=== PATIENT | male | born 1965 | race Caucasian/White ===

== ENCOUNTER 2016-12-27 11:24 | Emergency (ER) | payer MEDICARE ==
[2016-12-27] MEDS ORDERED: NS 0.9% 1000 ML* 2,000 ML IV ONE (14:42)
[2016-12-27] MEDS ORDERED: Ondansetron INJ* 2 MG/ML VIAL IV ONE (14:42)
[2016-12-27] MEDS ORDERED: Ketorolac INJ* 30 MG/ML 1 ML VIAL IV PUSH ONE (14:51)
[2016-12-27 15:16] LABS: Hematocrit 53 % (42-52); Hemoglobin 17.8 g/dl (14.0-18.0); Mean Corpuscular HGB Conc 34 g/dl (31-36); Mean Corpuscular Hemoglobin 30 pg (27-31); Mean Corpuscular Volume 88 fL (80-94); Mean Platelet Volume 8 um3 (7.4-10.4); Red Blood Count 5.99 10^6/ul (4.0-5.4); Red Cell Distribution Width 14 % (10.5-15); White Blood Count 7.5 10^3/ul (3.5-10.8)
[2016-12-27 15:18] LABS: Urine Bilirubin Negative (Negative); Urine Glucose Negative (Negative); Urine Nitrite Negative (Negative)
[2016-12-27 15:32] LABS: Albumin 4.5 g/dL (3.2-5.2); BUN/Creatinine Ratio 22.8 (8-20); Calcium 9.6 mg/dL (8.6-10.3); EGFR African American 110.7 (>60); EGFR Non-African American 86.1 (>60); Globulin 3.3 g/dL (2-4); Potassium 3.6 mmol/L (3.5-5.0); Total Bilirubin 0.6 mg/dL (0.2-1.0); Total Protein 7.8 g/dL (6.4-8.9)
[2016-12-27] MEDS ORDERED: Morphine INJ* 4 MG/ML 1 ML CARPUJECT IV ONE (15:53)
--- NOTE | 2016-12-27 15:55 | RAD ---
INDICATION: Right flank abdominal pain and history of kidney stones. COMPARISON: There are no prior studies available for comparison. TECHNIQUE: A CT scan of the abdomen and pelvis was performed without intravenous or oral contrast. Contiguous axial sections were obtained from the lung bases through the symphysis pubis. Images were reconstructed in the coronal and sagittal planes. FINDINGS: There is mild dependent bilateral lower lobe subsegmental atelectasis. No pleural effusion is present. The liver and spleen are normal in size. There are several small hypodense hepatic lesions. The largest measures 2 cm in size. These are nonspecific finding although likely represent cysts. The patient is status post cholecystectomy. The pancreas appears to be within normal limits. The kidneys and adrenal glands are normal in size. There are several calcifications within the left kidney measuring up to 0.6 cm in size consistent with renal calculi. No hydronephrosis is seen. No ureteral or bladder calculi are seen. The aorta is normal in caliber with mild calcific plaque present. No significant enlarged retroperitoneal lymph nodes are seen. The stomach, small and large bowel appear nondistended. The appendix is not well visualized. There is mild descending and sigmoid diverticulosis without evidence for diverticulitis. There is a small periumbilical hernia containing fat. No free intraperitoneal air or fluid is seen. No significant focal osseous abnormality is seen. IMPRESSION: 1. MULTIPLE NONOBSTRUCTING LEFT RENAL CALCULI, NO EVIDENCE FOR HYDRONEPHROSIS. 2. THERE ARE SEVERAL HYPODENSE HEPATIC LESIONS NONSPECIFIC ON THIS NONCONTRAST STUDY ALTHOUGH LIKELY REPRESENTING CYSTS. THESE CAN BE FURTHER EVALUATED WITH A RIGHT UPPER QUADRANT ULTRASOUND IF CLINICALLY NEEDED. 3. STATUS POST CHOLECYSTECTOMY.
--- NOTE | 2016-12-27 16:17 | ED ---
Abdominal Pain/Male - HPI Summary HPI Summary: 51M present with right sided abdominal pain and nausea since yesterday. He also admits to vomiting and diarrhea. He says that it feels like his kidney stones he has had in the past. He admits to frequency but denies any dysuria or hematuria. He has take tynelol for the pain. He says though he does not get diarrhea with his kidney stones. He denies any one else being sick. He has had his appendix and gallbladder removed. - History of Current Complaint Chief Complaint: EDAbdPain Stated Complaint: RIGHT SIDE FLANK PAIN Time Seen by Provider: 12/27/16 14:40 Pain Intensity: 8 - Allergies/Home Medications Allergies/Adverse Reactions: Allergies Allergy/AdvReac Type Severity Reaction Status Date / Time Bee Venom Allergy Intermediate Hives Verified 05/16/14 21:22 Warfarin Allergy Intermediate Itching Verified 05/16/14 21:22 PMH/Surg Hx/FS Hx/Imm Hx Cardiovascular History: Reports: Hx Angina, Hx Hypercholesterolemia, Hx Hypertension Denies: Hx Myocardial Infarction, Hx Valvular Heart Disease Respiratory History: Reports: Hx Sleep Apnea GI History: Reports: Hx Gastroesophageal Reflux Disease Musculoskeletal History: Reports: Hx Arthritis Sensory History: Reports: Hx Contacts or Glasses Opthamlomology History: Reports: Hx Contacts or Glasses Psychiatric History: Reports: Hx Depression - Surgical History Surgery Procedure, Year, and Place: Bilateral knee replacement Infectious Disease History: Yes Infectious Disease History: Denies: Traveled Outside the [place] in Last 30 Days - Family History Known Family History: Negative: Cardiac Disease - Social History Alcohol Use: None Substance Use Type: Reports: None Smoking Status (MU): Light Every Day Tobacco Smoker Type: Cigarettes Amount Used/How Often: 1 pack/day Have You Smoked in the Last Year: Yes Review of Systems Negative: Fever Negative: Chest Pain Negative: Shortness Of Breath Positive: Abdominal Pain - right side abdominal pain, Vomiting, Diarrhea, Nausea All Other Systems Reviewed And Are Negative: Yes Physical Exam Triage Information Reviewed: Yes Vital Signs On Initial Exam: Initial Vitals Temp Pulse Resp BP Pulse Ox 98.4 F 77 18 122/83 97 12/27/16 11:41 12/27/16 11:41 12/27/16 11:41 12/27/16 11:41 12/27/16 11:41 Vital Signs Reviewed: Yes Appearance: Positive: Well-Appearing Skin: Positive: Warm, Dry Head/Face: Positive: Normal Head/Face Inspection Eyes: Positive: Normal, Conjunctiva Clear ENT: Positive: Normal ENT inspection, Pharynx normal, TMs normal Respiratory/Lung Sounds: Positive: Clear to Auscultation, Breath Sounds Present Cardiovascular: Positive: Normal, RRR Abdomen Description: Positive: Soft, Other: - no rebound tenderness, tenderness to right side of abdomen. Negative: CVA Tenderness (R), CVA Tenderness (L) Bowel Sounds: Positive: Present Diagnostics - Vital Signs Vital Signs Temp Pulse Resp BP Pulse Ox 12/27/16 15:58 20 12/27/16 15:18 75 16 117/63 98 12/27/16 13:13 97.8 F 74 18 119/73 97 12/27/16 11:41 98.4 F 77 18 122/83 97 - Laboratory Lab Results: Lab Results 12/27/16 12/27/16 12/27/16 Range/Units 15:07 15:07 15:07 WBC 7.5 (3.5-10.8) 10^3/ul RBC 5.99 H (4.0-5.4) 10^6/ul Hgb 17.8 (14.0-18.0) g/dl Hct 53 H (42-52) % MCV 88 (80-94) fL MCH 30 (27-31) pg MCHC 34 (31-36) g/dl RDW 14 (10.5-15) % Plt Count 238 (150-450) 10^3/ul MPV 8 (7.4-10.4) um3 Neut % (Auto) 53.9 (38-83) % Lymph % (Auto) 31.6 (25-47) % [place] % (Auto) 8.8 (1-9) % Eos % (Auto) 4.8 (0-6) % Baso % (Auto) 0.9 (0-2) % Absolute Neuts (auto) 4.0 (1.5-7.7) 10^3/ul Absolute Lymphs (auto) 2.4 (1.0-4.8) 10^3/ul Absolute Monos (auto) 0.7 (0-0.8) 10^3/ul Absolute Eos (auto) 0.4 (0-0.6) 10^3/ul Absolute Basos (auto) 0.1 (0-0.2) 10^3/ul Absolute Nucleated RBC 0.01 10^3/ul Nucleated RBC % 0.1 Sodium 134 (133-145) mmol/L Potassium 3.6 (3.5-5.0) mmol/L Chloride 106 (101-111) mmol/L Carbon Dioxide 24 (22-32) mmol/L Anion Gap 4 (2-11) mmol/L BUN 21 (6-24) mg/dL Creatinine 0.92 (0.67-1.17) mg/dL Est GFR ( Amer) 110.7 (>60) Est GFR (Non-Af Amer) 86.1 (>60) BUN/Creatinine Ratio 22.8 H (8-20) Glucose 88 (70-100) mg/dL Lactic Acid (0.5-2.0) mmol/L Calcium 9.6 (8.6-10.3) mg/dL Total Bilirubin 0.60 (0.2-1.0) mg/dL AST 20 (13-39) U/L ALT 22 (7-52) U/L Alkaline Phosphatase 80 (34-104) U/L C-React Prot High Sens 16.57 mg/L Total Protein 7.8 (6.4-8.9) g/dL Albumin 4.5 (3.2-5.2) g/dL Globulin 3.3 (2-4) g/dL Albumin/Globulin Ratio 1.4 (1-3) Lipase 17 (11.0-82.0) U/L Urine Color Yellow Urine Appearance Clear Urine pH 5.0 (5-9) Ur Specific [place] 1.021 (1.010-1.030) Urine Protein Negative (Negative) Urine Ketones 1+ H (Negative) Urine Blood Negative (Negative) Urine Nitrate Negative (Negative) Urine Bilirubin Negative (Negative) Urine Urobilinogen Negative (Negative) Ur Leukocyte Esterase Negative (Negative) Urine Glucose Negative (Negative) 12/27/16 Range/Units 15:07 WBC (3.5-10.8) 10^3/ul RBC (4.0-5.4) 10^6/ul Hgb (14.0-18.0) g/dl Hct (42-52) % MCV (80-94) fL MCH (27-31) pg MCHC (31-36) g/dl RDW (10.5-15) % Plt Count (150-450) 10^3/ul MPV (7.4-10.4) um3 Neut % (Auto) (38-83) % Lymph % (Auto) (25-47) % [place] % (Auto) (1-9) % Eos % (Auto) (0-6) % Baso % (Auto) (0-2) % Absolute Neuts (auto) (1.5-7.7) 10^3/ul Absolute Lymphs (auto) (1.0-4.8) 10^3/ul Absolute Monos (auto) (0-0.8) 10^3/ul Absolute Eos (auto) (0-0.6) 10^3/ul Absolute Basos (auto) (0-0.2) 10^3/ul Absolute Nucleated RBC 10^3/ul Nucleated RBC % Sodium (133-145) mmol/L Potassium (3.5-5.0) mmol/L Chloride (101-111) mmol/L Carbon Dioxide (22-32) mmol/L Anion Gap (2-11) mmol/L BUN (6-24) mg/dL Creatinine (0.67-1.17) mg/dL Est GFR ( Amer) (>60) Est GFR (Non-Af Amer) (>60) BUN/Creatinine Ratio (8-20) Glucose (70-100) mg/dL Lactic Acid 0.6 (0.5-2.0) mmol/L Calcium (8.6-10.3) mg/dL Total Bilirubin (0.2-1.0) mg/dL AST (13-39) U/L ALT (7-52) U/L Alkaline Phosphatase (34-104) U/L C-React Prot High Sens mg/L Total Protein (6.4-8.9) g/dL Albumin (3.2-5.2) g/dL Globulin (2-4) g/dL Albumin/Globulin Ratio (1-3) Lipase (11.0-82.0) U/L Urine Color Urine Appearance Urine pH (5-9) Ur Specific [place] (1.010-1.030) Urine Protein (Negative) Urine Ketones (Negative) Urine Blood (Negative) Urine Nitrate (Negative) Urine Bilirubin (Negative) Urine Urobilinogen (Negative) Ur Leukocyte Esterase (Negative) Urine Glucose (Negative) Result Diagrams: 12/27/16 15:07 12/27/16 15:07 Lab Statement: Any lab studies that have been ordered have been reviewed, and results considered in the medical decision making process. - CT ab CT Interpretation: Positive (See Comments) - IMPRESSION: 1. MULTIPLE NONOBSTRUCTING LEFT RENAL CALCULI, NO EVIDENCE FOR HYDRONEPHROSIS. 2. THERE ARE SEVERAL HYPODENSE HEPATIC LESIONS NONSPECIFIC ON THIS NONCONTRAST STUDY ALTHOUGH LIKELY REPRESENTING CYSTS. THESE CAN BE FURTHER EVALUATED WITH A RIGHT UPPER QUADRANT ULTRASOUND IF CLINICALLY NEEDED. 3. STATUS POST CHOLECYSTECTOMY. CT Interpretation Completed By: Radiologist Abdominal Pain Fem Course/Dx - Course Course Of Treatment: 51 M presents with n/v/d and abdominal pain since yesterday. says similiar to kidney stones in past. CT does not show kidney stone , labs normal, explained likely viral will give zofran, patient understands and agrees with plan - Diagnoses Differential Diagnosis/HQI/PQRI: Diverticulitis, Renal Colic, Urinary Tract Infection Provider Diagnoses: Abdominal pain, Nausea and vomiting Discharge - Discharge Plan Condition: Good Disposition: HOME Prescriptions: Ondansetron ODT TAB* [Zofran Odt TAB*] 4 mg PO Q6H PRN #15 tab.odt PRN Reason: Nausea Patient Education Materials: Acute Nausea and Vomiting (ED) Referrals: Alise Marroquin MD [Primary Care Provider] - Additional Instructions: Can take Zofran every 6 hours as needed for nausea Drink small amounts of fluid as tolerated When able to eat follow BRAT diet: Bananas, rice, applesauce, toast Symptoms likely due to viral gastroenteritis Take ibuprofen or Tylenol for pain as needed every 6 hours Follow up with primary within 5 days Return to ED if develop fever that does not respond to Tylenol or ibuprofen, severe abdominal pain, or any new or worsening symptoms
[2016-12-27 16:41] VITALS: BP 114/73
== END 2016-12-27 16:42 | disposition home or self-care (01) ==
LOC: ED 11:24
DX: R10.9 Unspecified abdominal pain (principal); R11.2 Nausea with vomiting, unspecified; F17.210 Nicotine dependence, cigarettes, uncomplicated; Z87.442 Personal history of urinary calculi; Z90.49 Acquired absence of other specified parts of digestive tract
CPT/HCPCS: 36415; 74176; 80053; 81003; 83605; 83690; 85025; 86141; 96360; 96374; 96375; 99283; J1885; J2270; J2405

== ENCOUNTER 2017-05-17 08:15 | Emergency (ER) | payer MEDICARE ==
[2017-05-17] MEDS ORDERED: NS 0.9% 1000 ML* 1,000 ML IV ONE (08:56)
[2017-05-17] MEDS ORDERED: Ondansetron INJ* 2 MG/ML VIAL IV ONE (08:56)
[2017-05-17] MEDS ORDERED: Ketorolac INJ* 30 MG/ML 1 ML VIAL IV ONE (08:56)
[2017-05-17] MEDS ORDERED: HYDROmorphone* 1 MG/ML 1 ML SYR IV ONE (08:56)
--- NOTE | 2017-05-17 09:32 | RAD ---
CLINICAL HISTORY: Left flank pain COMPARISON: December 27, 2016 TECHNIQUE: Multiple contiguous axial CT scans were obtained of the abdomen and pelvis, without intravenous contrast enhancement. Coronal and sagittal multiplanar reformations are submitted for review. Oral contrast was not administered. FINDINGS: The study is limited by the lack of intravenous contrast. This limits evaluation of the solid organs and vasculature. LUNG BASES: The lung bases are clear. LIVER: There are stable low-attenuation hepatic parenchymal lesions. BILE DUCTS: There is no intrahepatic or extrahepatic biliary dilatation. GALLBLADDER: The gallbladder is not visualized. Surgical clips are noted in the gallbladder fossa. PANCREAS: The pancreas is normal, without mass or ductal dilatation. SPLEEN: Normal in size and appearance. UPPER GI TRACT: Evaluation of the gastrointestinal tract is limited by incomplete gastric distention. The upper GI tract is unremarkable. SMALL BOWEL AND MESENTERY: The small bowel is normal in contour, course, and caliber. There is no obstruction or dilatation. COLON: The colon is normal in contour, course, caliber. There is no pericolonic inflammatory change. ADRENALS: Normal bilaterally. KIDNEYS: The left kidney is edematous. There are multiple renal calculi on the left. This includes several calculi of the proximal left ureter measuring up to 0.9 cm in size. There is moderate left pelvocaliectasis. There is a punctate calculus of the lower pole of the right kidney measuring up to 0.2 cm.. BLADDER: The bladder is smooth in contour. PELVIC ORGANS: The prostate gland is normal. The seminal vesicles are symmetric. AORTA: The aorta is normal. IVC: Unremarkable LYMPH NODES: There is no lymphadenopathy by size criteria. ABDOMINAL WALL: There is no evidence for abdominal wall hernia. BONES AND SOFT TISSUES: Degenerative changes are noted OTHER: None IMPRESSION: 1. BILATERAL NEPHROLITHIASIS, INCLUDING SEVERAL CALCULI OF THE PROXIMAL LEFT URETER MEASURING UP TO 0.9 CM IN SIZE WITH ASSOCIATED LEFT SIDED HYDRONEPHROSIS AND RENAL EDEMA. 2. STABLE LOW-ATTENUATION HEPATIC PARENCHYMAL LESIONS.
[2017-05-17 10:05] LABS: Hematocrit 45 % (42-52); Hemoglobin 15.1 g/dl (14.0-18.0); Mean Corpuscular HGB Conc 34 g/dl (31-36); Mean Corpuscular Hemoglobin 30 pg (27-31); Mean Corpuscular Volume 89 fL (80-94); Mean Platelet Volume 8 um3 (7.4-10.4); Red Blood Count 5.03 10^6/ul (4.0-5.4); Red Cell Distribution Width 14 % (10.5-15); White Blood Count 10.8 10^3/ul (3.5-10.8)
[2017-05-17 10:20] LABS: Albumin 4.1 g/dL (3.2-5.2); BUN/Creatinine Ratio 12.7 (8-20); C Reactive Protein 115.34 mg/L (< 5.00); Calcium 9.3 mg/dL (8.6-10.3); EGFR African American 67.1 (>60); EGFR Non-African American 52.2 (>60); Globulin 3.2 g/dL (2-4); Potassium 3.7 mmol/L (3.5-5.0); Total Bilirubin 0.8 mg/dL (0.2-1.0); Total Protein 7.3 g/dL (6.4-8.9)
[2017-05-17 10:33] LABS: Urine Bacteria Absent (Absent); Urine Bilirubin Negative (Negative); Urine Glucose Negative (Negative); Urine Nitrite Negative (Negative)
--- NOTE | 2017-05-17 11:08 | ED ---
Cory Flowers Thomas, scribed for Eze Ngo MD on 05/17/17 at 0844 . Abdominal Pain/Male - HPI Summary HPI Summary: Pt is a 51 y/o M presenting to the ED c/o L-sided abd pain that began yesterday. Pain is "throbbing, steady and jagged" and has worsened throughout the night. Pain is aggravated when laying on side and when going over speed bumps. He has taken tylenol for the pain. Additionally c/o chills and dry heaving (yesterday). Denies hematuria, constipation, dysuria, fever. He has a Hx of kideny stone. He has a surgery schedule in two days on his knee. - History of Current Complaint Chief Complaint: EDAbdPain Stated Complaint: LT FLANK PAIN Time Seen by Provider: 05/17/17 08:31 Hx Obtained From: Patient Onset/Duration: Lasting Hours - onset yesterday, Still Present, Worse Since - this AM Timing: Constant Severity Currently: Severe Pain Intensity: 10 Pain Scale Used: 0-10 Numeric Location: Other - L side Character: Other: - "throbbing, steady, jagged" Associated Signs And Symptoms: Positive: Nausea - dry heaves, Other - POS: chills. NEG: hematuria, constipation, dysuria. Negative: Fever - Allergies/Home Medications Allergies/Adverse Reactions: Allergies Allergy/AdvReac Type Severity Reaction Status Date / Time Bee Venom Allergy Intermediate Hives Verified 05/13/17 12:33 Warfarin Allergy Intermediate Itching Verified 05/13/17 12:33 PMH/Surg Hx/FS Hx/Imm Hx Previously Healthy: No Cardiovascular History: Reports: Hx Angina, Hx Hypercholesterolemia, Hx Hypertension Denies: Hx Myocardial Infarction, Hx Valvular Heart Disease Respiratory History: Reports: Hx Sleep Apnea GI History: Reports: Hx Gastroesophageal Reflux Disease Musculoskeletal History: Reports: Hx Arthritis Sensory History: Reports: Hx Contacts or Glasses Opthamlomology History: Reports: Hx Contacts or Glasses Psychiatric History: Reports: Hx Depression - Surgical History Surgery Procedure, Year, and Place: Bilateral knee replacement Infectious Disease History: No Infectious Disease History: Denies: Traveled Outside the [place] in Last 30 Days - Family History Known Family History: Negative: Cardiac Disease - Social History Alcohol Use: None Substance Use Type: Reports: None Smoking Status (MU): Light Every Day Tobacco Smoker Type: Cigarettes Amount Used/How Often: 1 pack/day Have You Smoked in the Last Year: Yes Review of Systems Positive: Chills. Negative: Fever Eyes: Negative ENT: Negative Cardiovascular: Negative Respiratory: Negative Positive: Abdominal Pain - L side, Nausea - dry heaves, Other - NEG: constipation Genitourinary: Negative Negative: dysuria, hematuria Musculoskeletal: Negative Skin: Negative Neurological: Negative Psychological: Normal All Other Systems Reviewed And Are Negative: Yes Physical Exam Triage Information Reviewed: Yes Vital Signs On Initial Exam: Initial Vitals Temp Pulse Resp BP Pulse Ox 98.1 F 90 20 139/87 95 05/17/17 08:21 05/17/17 08:21 05/17/17 08:21 05/17/17 08:21 05/17/17 08:21 Vital Signs Reviewed: Yes Appearance: Positive: Well-Appearing, No Pain Distress, Obese - morbidly Skin: Positive: Warm, Skin Color Reflects Adequate Perfusion, Dry Head/Face: Positive: Normal Head/Face Inspection Eyes: Positive: Normal ENT: Positive: Normal ENT inspection Neck: Positive: Supple, Nontender Respiratory/Lung Sounds: Positive: Clear to Auscultation, Breath Sounds Present Cardiovascular: Positive: RRR Abdomen Description: Positive: Soft, Other: - TTP at the LUQ Bowel Sounds: Positive: Present Musculoskeletal: Positive: Normal Neurological: Positive: Normal, Sensory/Motor Intact, Alert, Oriented to Person Place, Time, CN Intact II-III Psychiatric: Positive: Normal, Affect/Mood Appropriate Diagnostics - Vital Signs Vital Signs Temp Pulse Resp BP Pulse Ox 05/17/17 08:24 97.3 F 85 20 139/87 95 05/17/17 08:21 98.1 F 90 20 139/87 95 - Laboratory Lab Results: Lab Results 05/17/17 05/17/17 05/17/17 Range/Units 09:35 09:40 09:40 WBC 10.8 (3.5-10.8) 10^3/ul RBC 5.03 (4.0-5.4) 10^6/ul Hgb 15.1 (14.0-18.0) g/dl Hct 45 (42-52) % MCV 89 (80-94) fL MCH 30 (27-31) pg MCHC 34 (31-36) g/dl RDW 14 (10.5-15) % Plt Count 214 (150-450) 10^3/ul MPV 8 (7.4-10.4) um3 Neut % (Auto) 69.8 (38-83) % Lymph % (Auto) 17.9 L (25-47) % Price % (Auto) 10.4 H (1-9) % Eos % (Auto) 1.4 (0-6) % Baso % (Auto) 0.5 (0-2) % Absolute Neuts (auto) 7.6 (1.5-7.7) 10^3/ul Absolute Lymphs (auto) 1.9 (1.0-4.8) 10^3/ul Absolute Monos (auto) 1.1 H (0-0.8) 10^3/ul Absolute Eos (auto) 0.1 (0-0.6) 10^3/ul Absolute Basos (auto) 0.1 (0-0.2) 10^3/ul Absolute Nucleated RBC 0 10^3/ul Nucleated RBC % 0 Sodium 133 (133-145) mmol/L Potassium 3.7 (3.5-5.0) mmol/L Chloride 108 (101-111) mmol/L Carbon Dioxide 20 L (22-32) mmol/L Anion Gap 5 (2-11) mmol/L BUN 18 (6-24) mg/dL Creatinine 1.42 H (0.67-1.17) mg/dL Est GFR ( Amer) 67.1 (>60) Est GFR (Non-Af Amer) 52.2 (>60) BUN/Creatinine Ratio 12.7 (8-20) Glucose 107 H (70-100) mg/dL Lactic Acid (0.5-2.0) mmol/L Calcium 9.3 (8.6-10.3) mg/dL Total Bilirubin 0.80 (0.2-1.0) mg/dL AST 14 (13-39) U/L ALT 22 (7-52) U/L Alkaline Phosphatase 71 (34-104) U/L C-Reactive Protein 115.34 H (< 5.00) mg/L Total Protein 7.3 (6.4-8.9) g/dL Albumin 4.1 (3.2-5.2) g/dL Globulin 3.2 (2-4) g/dL Albumin/Globulin Ratio 1.3 (1-3) Lipase 15 (11.0-82.0) U/L Urine Color Yellow Urine Appearance Clear Urine pH 6.0 (5-9) Ur Specific [place] 1.012 (1.010-1.030) Urine Protein Negative (Negative) Urine Ketones Negative (Negative) Urine Blood 1+ H (Negative) Urine Nitrate Negative (Negative) Urine Bilirubin Negative (Negative) Urine Urobilinogen Positive H (Negative) Ur Leukocyte Esterase Trace H (Negative) Urine WBC (Auto) Trace(0-5/hpf) (Absent) Urine RBC (Auto) 1+(3-5/hpf) H (Absent) Ur Squamous Epith Cells Present H (Absent) Urine Bacteria Absent (Absent) Urine Glucose Negative (Negative) 05/17/17 Range/Units 09:40 WBC (3.5-10.8) 10^3/ul RBC (4.0-5.4) 10^6/ul Hgb (14.0-18.0) g/dl Hct (42-52) % MCV (80-94) fL MCH (27-31) pg MCHC (31-36) g/dl RDW (10.5-15) % Plt Count (150-450) 10^3/ul MPV (7.4-10.4) um3 Neut % (Auto) (38-83) % Lymph % (Auto) (25-47) % Price % (Auto) (1-9) % Eos % (Auto) (0-6) % Baso % (Auto) (0-2) % Absolute Neuts (auto) (1.5-7.7) 10^3/ul Absolute Lymphs (auto) (1.0-4.8) 10^3/ul Absolute Monos (auto) (0-0.8) 10^3/ul Absolute Eos (auto) (0-0.6) 10^3/ul Absolute Basos (auto) (0-0.2) 10^3/ul Absolute Nucleated RBC 10^3/ul Nucleated RBC % Sodium (133-145) mmol/L Potassium (3.5-5.0) mmol/L Chloride (101-111) mmol/L Carbon Dioxide (22-32) mmol/L Anion Gap (2-11) mmol/L BUN (6-24) mg/dL Creatinine (0.67-1.17) mg/dL Est GFR ( Amer) (>60) Est GFR (Non-Af Amer) (>60) BUN/Creatinine Ratio (8-20) Glucose (70-100) mg/dL Lactic Acid 0.6 (0.5-2.0) mmol/L Calcium (8.6-10.3) mg/dL Total Bilirubin (0.2-1.0) mg/dL AST (13-39) U/L ALT (7-52) U/L Alkaline Phosphatase (34-104) U/L C-Reactive Protein (< 5.00) mg/L Total Protein (6.4-8.9) g/dL Albumin (3.2-5.2) g/dL Globulin (2-4) g/dL Albumin/Globulin Ratio (1-3) Lipase (11.0-82.0) U/L Urine Color Urine Appearance Urine pH (5-9) Ur Specific [place] (1.010-1.030) Urine Protein (Negative) Urine Ketones (Negative) Urine Blood (Negative) Urine Nitrate (Negative) Urine Bilirubin (Negative) Urine Urobilinogen (Negative) Ur Leukocyte Esterase (Negative) Urine WBC (Auto) (Absent) Urine RBC (Auto) (Absent) Ur Squamous Epith Cells (Absent) Urine Bacteria (Absent) Urine Glucose (Negative) Result Diagrams: 05/17/17 09:40 05/17/17 09:40 Lab Statement: Any lab studies that have been ordered have been reviewed, and results considered in the medical decision making process. - CT CT Abd/Pel CT Interpretation: Positive (See Comments) - 1. BILATERAL NEPHROLITHIASIS, INCLUDING SEVERAL CALCULI OF THE PROXIMAL LEFT URETER MEASURING UP TO 0.9 CM IN SIZE WITH ASSOCIATED LEFT SIDED HYDRONEPHROSIS AND RENAL EDEMA. 2. STABLE LOW- ATTENUATION HEPATIC PARENCHYMAL LESIONS. CT Interpretation Completed By: Radiologist Re-Evaluation - Re-Evaluation First Eval Re-Evaluation Time: 10:39 Change: Unchanged Abdominal Pain Fem Course/Dx - Course Course Of Treatment: Mr. Stapleton presented with a one day history of left flank pain. He has a history of kidney stones. CT revealed a 0.9 cm left ureterolithiasis wiht moderate hydronephrosis as wll as other stones. His urine is equivocal but I don't believe it reflects an acute infection. We have no urologic coverage today and the patient will be transferred to [facility]. He is receiving fluids and has received pain medications. - Diagnoses Provider Diagnoses: Hydronephrosis, Kidney stone - Provider Notifications Discussed Care Of Patient With: Nacho Meléndez Time Discussed With Above Provider: 10:05 Instructed by Provider To: Other - Discussed patient. Also discussed case with Dr. Curry, physician, [facility]. Discharge - Discharge Plan Condition: Fair Disposition: TRANS HIGHER LVL OF CARE FAC Referrals: Alise Marroquin MD [Primary Care Provider] - The documentation as recorded by the Cory salmon Thomas accurately reflects the service I personally performed and the decisions made by me, Eze Ngo MD.
[2017-05-17] MEDS ORDERED: HYDROmorphone* 1 MG/ML 1 ML SYR IV SLOW PU ONE (11:53)
[2017-05-17 12:32] VITALS: BP 128/78
== END 2017-05-17 12:31 | disposition short-term general hospital (02) ==
LOC: ED 08:15
DX: N13.30 Unspecified hydronephrosis (principal); N20.0 Calculus of kidney; E78.00 Pure hypercholesterolemia, unspecified; I10 Essential (primary) hypertension; K21.9 Gastro-esophageal reflux disease without esophagitis; F32.9 Major depressive disorder, single episode, unspecified; F17.210 Nicotine dependence, cigarettes, uncomplicated
CPT/HCPCS: 36415; 74176; 80053; 81003; 81015; 83605; 83690; 85025; 86140; 87086; 96360; 96374; 96375; 96376; 99283; J1170; J1885; J2405

== ENCOUNTER 2017-05-19 07:30 | Observation (INO) | payer MEDICARE ==
--- NOTE | 2017-05-13 16:24 | HP ---
HISTORY AND PHYSICAL: DATE OF ADMISSION/SURGERY: 05/19/17 DATE OF OFFICE VISIT: 05/13/17 SURGEON: Edna Alexis MD. PROCEDURE: Left patella resurfacing. CHIEF COMPLAINT: Left knee pain. HISTORY OF PRESENT ILLNESS: Mr. Stapleton is a 51-year-old gentleman with complaints of left knee pain . He underwent a left total knee arthroplasty with Dr. Bishop in [place] approximately 10 years ag o. He has sharp peripatellar pain and he has failed conservative management. He has elected to pro ceed with the left patellar resurfacing which is scheduled for 05/19/[address] Alexis. PAST MEDICAL HISTORY: Heart murmur, high cholesterol, sleep apnea, hypertension, and history of MRS A infection. PAST SURGICAL HISTORY: Bilateral total knee arthroplasties, appendectomy, cholecystectomy. CURRENT MEDICATIONS: 1. Vitamin D. 2. Gabapentin. 3. Ibuprofen. 4. Lisinopril. 5. Ranitidine. 6. Fluticasone nasal spray. 7. Venlafaxine. 8. Topiramate. 9. Pantoprazole sodium. 10. Cialis. 11. Aspirin. 12. EpiPen. 13. Simvastatin. ALLERGIES: WARFARIN and BEE STINGS. WARFARIN causes itching. FAMILY HISTORY: Diabetes, heart disease and cancer. SOCIAL HISTORY: This is a 51-year-old gentleman. He lives with his . He smokes 1 pack a day f or the last 20 years. He denies use of drugs or alcohol. REVIEW OF SYSTEMS: A complete 14-point review of systems was reviewed with the patient and was posi tive for history of an MRSA infection. PHYSICAL EXAMINATION GENERAL: He is well developed, well nourished in no acute distress. VITAL SIGNS: He stands 5 feet 9 inches tall. Weighs 290 pounds. His blood pressure is 140/74. Hi s heart rate is 80. HEENT: Normocephalic, atraumatic. NECK: Supple. No palpable lymph nodes. PULMONARY: The lungs are clear to auscultation bilaterally. CARDIO: Regular rate and rhythm. Strong S1, S2. ABDOMEN: Soft, nontender, nondistended. NEUROLOGIC: He is alert and oriented x3. Cranial nerves II through XII are intact. MUSCULOSKELETAL: Left lower extremity, the skin is intact. There are no open wounds or abrasions. There is a well-healed anterior incision over the left knee. There is a mild to moderate joint effu devon; 0 to 120 degrees flexion. Patellofemoral crepitus. There is tenderness to palpation bilateral ly along the peripatellar region. Distally, he is neurovascularly intact. ASSESSMENT AND PLAN: Mr. Stapleton is a 51-year-old gentleman who underwent left total knee arthropla sty approximately 10 years ago having peripatellar pain of the left knee. He failed conservative ma nagement. He has elected to undergo a left patella resurfacing. Surgery is scheduled for 05/19/[address] Alexis discussed the risks and benefits of the surgery at today's visit. All o f his questions were answered. A prescription for aspirin 325 was sent to his pharmacy for him to saurabh soler twice a day after the surgery for DVT prophylaxis. He will see Dr. Alexis back 2 weeks after the surgery. NAVNEET HUNTER [id number]/[facility] #: [id number]
--- NOTE | 2017-06-04 11:00 | HP ---
HISTORY AND PHYSICAL: DATE OF SURGERY/ADMISSION: 06/14/17 DATE OF OFFICE VISIT: 06/03/17 SURGEON: Edna Alexis MD * (DICTATED BY NAVNEET HUNTER) PROCEDURE: Left patellar resurfacing. CHIEF COMPLAINT: Left knee pain. HISTORY OF PRESENT ILLNESS: Mr. Stapleton is a 51-year-old gentleman with a painful left total knee arthroplasty. He has patellofemoral pain and is scheduled for patellar resurfacing with Dr. Alexis on 06/14/17. PAST MEDICAL HISTORY: Heart murmur, high cholesterol, sleep apnea, hypertension , MRSA infection. PAST SURGICAL HISTORY: Bilateral total knee arthroplasties, appendectomy, cholecystectomy, and kidney stone removal. CURRENT MEDICATIONS: 1. Venlafaxine. 2. Pantoprazole. 3. Simvastatin. 4. Naproxen. 5. Ranitidine. 6. Topiramate. 7. Lisinopril. 8. Gabapentin. 9. Tamsulosin. 10. Ibuprofen. 11. Aspirin. 12. Vitamin D. 13. Tylenol. ALLERGIES: WARFARIN, which causes itching, and BEE STINGS. FAMILY HISTORY: Diabetes, heart disease, and cancer. SOCIAL HISTORY: A 51-year-old gentleman, he lives with his . He smokes a pack a day for the last 20 years. He denies the use of drugs or alcohol. REVIEW OF SYSTEMS: A complete 14-point review of systems was reviewed with the patient and was positive for history of an MRSA infection. He denies anesthesia problems, history of DVT, PE, hepatitis C, or HIV. PHYSICAL EXAMINATION GENERAL: He is well developed, well nourished, in no acute distress. VITAL SIGNS: He stands 5 feet 9 inches tall, weighs 290 pounds, his blood pressure is 118/85, his heart rate 78. HEENT: Normocephalic and atraumatic. NECK: Supple. No palpable lymph nodes. PULMONARY: The lungs are clear to auscultation bilaterally CARDIO: Regular rate and rhythm. Strong S1 and S2. ABDOMEN: Soft, nontender, and nondistended. NEUROLOGIC: He is alert and oriented x3. Cranial nerves II through XII are intact. MUSCULOSKELETAL: Left lower extremity skin is intact. There are no open wounds or abrasions. He has 2+ dorsalis pedis pulses. His lower extremity muscle group strength are intact at 5/5. Zero to 120 degrees of range of motion , patellofemoral crepitus, with tenderness to palpation bilaterally along the peripatellar region. ASSESSMENT AND PLAN: Mr. Stapleton is a 51-year-old gentleman with bilateral total knee replacements 10 years ago. He has patellofemoral pain of his total knee arthroplasties, which do not have a resurfaced patella. He has failed conservative management. He has elected to proceed with a left patellar resurfacing. The surgery is scheduled for 06/14/[address] Alexis discussed the risks and benefits of the surgery at today's visit and all of his questions were answered. Percocet was sent to his pharmacy for postoperative pain control. He is allergic to WARFARIN , so we will likely do aspirin for DVT prophylaxis. He will see Dr. Alexis back 2 weeks after the surgery. NAVNEET HUNTER [id number]/[facility] #: [id number] [place]
[2017-06-13] MEDS ORDERED: Buffered Lidocaine 0.9% SYRIN* 5 ML/SYR SYRINGE INTRADERM ONE (12:08)
[2017-06-14] MEDS ORDERED: Buffered Lidocaine 0.9% SYRIN* 5 ML/SYR SYRINGE ONE (06:59)
[2017-06-14] MEDS ORDERED: ceFAZolin 1 GM in Dextrose (*) 1 GM/50 ML BAG IVPB ONE (06:59)
[2017-06-14] MEDS ORDERED: ceFAZolin 2 GM PREMIX(*) 2 GM/50 ML BAG IVPB ONE (06:59)
[2017-06-14] MEDS ORDERED: Midazolam* 1 MG/ML 5 ML VIAL (5 MG) ONE (07:51)
[2017-06-14] MEDS ORDERED: fentaNYL* 50 MCG/ML 2 ML VIAL (100 MCG VIAL) ONE ×2 (07:51→08:31)
[2017-06-14] MEDS ORDERED: KETAMINE HCL* 50 MG/ML 10 ML VIAL ONE (07:51)
[2017-06-14] MEDS ORDERED: Propofol* 10 MG/ML 20 ML BTL IV PUSH ONE (08:16)
[2017-06-14] MEDS ORDERED: Ondansetron INJ* 2 MG/ML VIAL ONE (08:16)
[2017-06-14] MEDS ORDERED: Dexamethasone IV* 4 MG/ML 1 ML (4 MG) ONE (08:16)
[2017-06-14] MEDS ORDERED: Ketorolac INJ* 30 MG/ML 1 ML VIAL ONE (08:16)
[2017-06-14] MEDS ORDERED: Lidocaine 2% PF * 5 ML VIAL ONE (08:16)
[2017-06-14] MEDS ORDERED: Acetaminophen TAB* 325 MG PO PRN ×2 (08:24→10:25)
[2017-06-14] MEDS ORDERED: oxyCODONE TAB* 5 MG TAB PO PRN ×2 (08:24→10:25)
[2017-06-14] MEDS ORDERED: DiMENhydriNATE IV* 50 MG/ML VIAL IV PUSH PRN (08:24)
[2017-06-14] MEDS ORDERED: Bupivacaine 0.5% SDV PF* 30 ML VIAL ONE (08:44)
[2017-06-14] MEDS ORDERED: HYDROmorphone* 1 MG/ML 1 ML SYR ONE ×2 (09:13→10:41)
[2017-06-14] MEDS ORDERED: Morphine INJ* 2 MG/ML 1 ML SYRINGE IV PRN (10:25)
[2017-06-14] MEDS ORDERED: Ondansetron TAB* 4 MG PO PRN (10:25)
[2017-06-14] MEDS ORDERED: Polyethylene Glycol 3350* 17 GM PACKET PO PRN (10:25)
[2017-06-14] MEDS ORDERED: oxyCODONE/Acetamin 5/325 MG* TAB PO PRN (10:25)
[2017-06-14] MEDS ORDERED: Magnesium Hydroxide LIQ* 30 ML UDC PO PRN (10:25)
[2017-06-14] MEDS ORDERED: Bisacodyl SUPP* 10 MG SUPP PR PRN (10:25)
[2017-06-14] MEDS ORDERED: diPHENhydraMINE IV* 50 MG/ML 1 ml VIAL (BENADRYL) IV PRN (10:25)
[2017-06-14] MEDS: HYDROmorphone* 1 MG/ML 1 ML SYR IV PRN ×5 (10:50→12:02)
[2017-06-14] MEDS ORDERED: oxyCODONE TAB* 5 MG TAB ONE (11:09)
--- NOTE | 2017-06-14 11:16 | RAD ---
INDICATION: Postoperative imaging after posterior patellar resurfacing surgery COMPARISON: Knee radiograph dated February 11, 2017 TECHNIQUE: 2 view radiograph of the left knee. FINDINGS: The left knee prosthesis is anatomically aligned. There is a component traversing the expected joint base there is continuous with the poles of the knee prosthesis. Evidence of a "patellar button" is seen on the lateral view radiograph, new since the previous radiograph. IMPRESSION: Anatomically aligned left knee prosthesis potentially with a joint immobilization component. On the lateral view evidence of application of a "patellar button" is seen that is new from the previous radiograph.
--- NOTE | 2017-06-14 11:16 | CONSULT ---
Subjective Date of Service: 06/14/17 Interval History: 51 yo M with hx of HTN, morbid obesity, ADALID on CPAP, depression and HLD s/p L patellar resurfacing and poly exchange. Patient seen in PACU and reports some mild knee pain at this time, still feels a bit drowsy. Reports feeling well recently aside from L knee pains. Compliant with his CPAP at home which he brought with him. Family History: Unchanged from Admission - DM, CAD, cancer Social History: Unchanged from Admission - 1 PPD smoker x 20 years, no alcohol or illicit drug use Past Medical History: Unchanged from Admission - HTN, HLD, ADALID on CPAP, depression Review of Systems - Measurements Intake and Output: Intake and Output Last 24 Hours 06/12/17 06/13/17 06/14/17 06/15/17 06:59 06:59 06:59 06:59 Intake Total 1500 Output Total 200 Balance 1300 Weight 131.542 kg Intake: IV Fluids 1500 LR 1500 Output: Estimated Blood Loss 200 - Review of Systems Constitutional Symptoms: Negative: Fever Dermatology: Positive: Normal HEENT: Positive: Normal Eyes: Positive: Normal Thyroid: Positive: Normal Pulmonary: Positive: Normal Cardiology: Positive: Normal Gastroenterology: Positive: Normal Genital - Urinary: Positive: Normal Musculoskeletal: Positive: Joint Pain, Joint Stiffness, Arthritis Endocrinology: Positive: Normal Neurology: Positive: Normal Objective Active Medications: Acetaminophen (Tylenol Tab*) 650 mg PO ONCE PRN Acetaminophen (Tylenol Tab*) 650 mg PO Q4H PRN Aspirin (Aspirin Tab*) 325 mg PO BID MANUEL Bisacodyl (Dulcolax Supp*) 10 mg SD DAILY PRN Dimenhydrinate (Dramamine Iv*) 12.5 mg IV PUSH ONCE PRN Diphenhydramine HCl (Benadryl Iv*) 12.5 mg IV Q6H PRN Docusate Sodium (Colace Cap*) 100 mg PO BID MANUEL Gabapentin (Neurontin Cap(*)) 600 mg PO BID MANUEL Hydromorphone HCl (Dilaudid Iv*) 0.2 mg IV Q5M PRN Lactated Ringer's (Lactated Ringers 1000 Ml Bag*) 1,000 mls @ 125 mls/hr IV PER RATE MANUEL Cefazolin Sodium 1 gm/ Sodium (Chloride) 50 mls @ 200 mls/hr IVPB Q8H MANUEL Lactated Ringer's (Lactated Ringers 1000 Ml Bag*) 1,000 mls @ 100 mls/hr IV PER RATE MANUEL Lactulose (Lactulose*) 30 ml PO Q6H PRN Lidocaine/Sodium Bicarbonate (Buffered Lidocaine 0.9% Syrin*) 0.2 ml INTRADERM ONCE ONE Lisinopril (Prinivil Tab*) [address] [facility] Magnesium Hydroxide (Milk Of Magnesia Liq*) 30 ml PO Q6H PRN Morphine Sulfate (Morphine Inj (Syringe)*) 2 mg IV Q2H PRN Non-Formulary Medication (Topiramate [Topiramate Er 150 Mg Cap]) 100 mg PO BID MANUEL Ondansetron HCl (Zofran Tab*) 4 mg PO Q6H PRN Oxycodone HCl (Roxycodone Tab*) 5 mg PO ONCE PRN Oxycodone HCl (Roxycodone Tab*) 10 mg PO Q4H PRN Oxycodone/Acetaminophen (Percocet 5/325 Tab*) 1 tab PO Q3H PRN Oxycodone/Acetaminophen (Percocet 5/325 Tab*) 2 tab PO Q3H PRN Pantoprazole Sodium (Protonix Tab (Nf)) [address] [facility] Polyethylene Glycol/Electrolytes (Miralax*) 17 gm PO DAILY PRN Ranitidine HCl (Zantac) 150 mg PO BID MANUEL Simvastatin (Zocor(Nf)) [address] [facility] Tamsulosin HCl (Flomax Cap*) 0.[address] [facility] Venlafaxine HCl (Effexor Tab (Nf)) [address] [facility] Vital Signs 06/14/17 06/14/17 06/14/17 06:52 10:30 10:35 Temperature 97.5 F 97.7 F Pulse Rate 72 80 82 Respiratory 16 16 14 Rate Blood Pressure 125/75 120/70 122/72 (mmHg) O2 Sat by Pulse 97 100 99 Oximetry 06/14/17 06/14/17 06/14/17 10:40 10:45 10:50 Temperature Pulse Rate 79 75 Respiratory 15 14 16 Rate Blood Pressure 108/55 130/76 (mmHg) O2 Sat by Pulse 98 97 Oximetry 06/14/17 06/14/17 11:00 11:06 Temperature Pulse Rate 73 Respiratory 14 18 Rate Blood Pressure 119/75 (mmHg) O2 Sat by Pulse 97 Oximetry Oxygen Devices in Use Now: None Appearance: Middle-aged, obese, M, laying in bed in NAD Eyes: No Scleral Icterus Ears/Nose/Mouth/Throat: - - Dry MM Neck: NL Appearance and Movements; NL JVP Respiratory: Symmetrical Chest Expansion and Respiratory Effort, Clear to Auscultation Cardiovascular: NL Sounds; No Murmurs; No JVD, RRR Abdominal: - - Obese, soft, NTND, BS+ Lymphatic: No Cervical Adenopathy Extremities: No Edema, - - L AGUSTÍN wrap and cryounit in place Skin: No Rash or Ulcers Neurological: Alert and Oriented x 3 Assessment/Plan - Billing 51 yo M with hx of HTN, HLD, ADALID, depression, GERD and B/L TKA now s/p L patellar resurfacing and poly exchange 1) S/P L patellar resurfacing - management/analgesia as per ortho - on ASA 325 BID for ppx 2) HTN - continue home Lisinopril 3) ADALID - will place CPAP order for qhs 4) GERD - continue PPI and H2 simran 5) Depression - continue effexor 6) HLD - continue statin 7) DVT PPx - ASA BID Thank you for this consult. We will continue to follow.
[2017-06-14] MEDS: oxyCODONE/Acetamin 5/325 MG* TAB PO PRN ×2 (15:14→20:36)
[2017-06-14] MEDS: ceFAZolin VIAL(*) 1 GM in NS 0.9% 50 ML* 50 ML IVPB SCH (15:17)
[2017-06-14] MEDS: Atorvastatin* 20 MG TAB PO SCH (17:05)
[2017-06-14] MEDS: CMCS: Venlafaxine TAB (NF) 25 MG TAB PO SCH (20:34)
[2017-06-14] MEDS: Docusate CAP* 100 MG PO SCH (20:35)
[2017-06-14] MEDS: Tamsulosin CAP* 0.4 MG PO SCH (20:35)
[2017-06-14] MEDS: Gabapentin CAP(*) 300 MG PO SCH (20:35)
[2017-06-14] MEDS: Aspirin TAB* 325 MG PO SCH (20:35)
[2017-06-14] MEDS: Omeprazole CAP* 20 MG PO SCH (20:35)
[2017-06-14] MEDS: Famotidine TAB* 20 MG PO SCH (20:36)
[2017-06-14] MEDS: TOPIRAMATE 100 MG PO SCH (20:37)
[2017-06-14] MEDS ORDERED: Nicotine Inhaler* 10 MG AMP INH PRN (20:42)
[2017-06-14] MEDS ORDERED: Mouth Piece, Nicotine* 1 EACH CARTRIDGE INH PRN (20:42)
[2017-06-15] MEDS: ceFAZolin VIAL(*) 1 GM in NS 0.9% 50 ML* 50 ML IVPB SCH ×2 (00:07→07:54)
[2017-06-15] MEDS: oxyCODONE/Acetamin 5/325 MG* TAB PO PRN ×5 (00:10→22:33)
[2017-06-15 05:56] LABS: Hematocrit 40 % (42-52); Hemoglobin 13.3 g/dl (14.0-18.0)
[2017-06-15 06:09] LABS: BUN/Creatinine Ratio 23.5 (8-20); Calcium 8.5 mg/dL (8.6-10.3); EGFR African American 128.2 (>60); EGFR Non-African American 99.7 (>60); Potassium 3.9 mmol/L (3.5-5.0)
[2017-06-15] MEDS ORDERED: Lisinopril TAB* 10 MG PO SCH (09:00)
[2017-06-15] MEDS: Gabapentin CAP(*) 300 MG PO SCH ×2 (09:20→20:34)
[2017-06-15] MEDS: Docusate CAP* 100 MG PO SCH ×2 (09:20→20:33)
[2017-06-15] MEDS: Omeprazole CAP* 20 MG PO SCH ×2 (09:20→20:34)
[2017-06-15] MEDS: Aspirin TAB* 325 MG PO SCH ×2 (09:20→20:33)
[2017-06-15] MEDS: Famotidine TAB* 20 MG PO SCH ×2 (09:21→20:34)
[2017-06-15] MEDS: CMCS: Venlafaxine TAB (NF) 25 MG TAB PO SCH ×2 (09:21→20:34)
--- NOTE | 2017-06-15 09:57 | PN ---
Subjective Date of Service: 06/15/17 Interval History: Patient seen and examined at bedside. Pt reports that he needs to "strain" to urinate while sitting down. NSG staff bladder scanned Pt and found 0-20 ml post- void residual. Denies fever, chills, shortness of breath, chest discomfort, N/V/ D. Pt reports some dizziness when first up, but has been able to ambulate in the halls with PT this AM. Family History: Unchanged from Admission - DM, CAD, cancer Social History: Unchanged from Admission - 1 PPD smoker x 20 years, no alcohol or illicit drug use Past Medical History: Unchanged from Admission - HTN, HLD, ADALID on CPAP, depression Objective Active Medications: Acetaminophen (Tylenol Tab*) 650 mg PO Q4H PRN Reason: PAIN OR TEMPERATURE Aspirin (Aspirin Tab*) 325 mg PO BID [facility] Atorvastatin Calcium (Lipitor*) 40 mg PO 1700 [facility] Bisacodyl (Dulcolax Supp*) 10 mg DC DAILY PRN Reason: constipation Device (Nicotine Mouth Piece*) 1 each INH .USE WITH NICOTROL PRN Reason: CRAVING Diphenhydramine HCl (Benadryl Iv*) 12.5 mg IV Q6H PRN Reason: PRURITIS Docusate Sodium (Colace Cap*) 100 mg PO BID [facility] Famotidine (Pepcid Tab*) 20 mg PO BID [facility] Gabapentin (Neurontin Cap(*)) 600 mg PO BID [facility] Lactated Ringer's (Lactated Ringers 1000 Ml Bag*) 1,000 mls @ 100 mls/hr IV PER RATE MANUEL Lactulose (Lactulose*) 30 ml PO Q6H PRN Reason: constipation Lisinopril (Prinivil Tab*) 5 mg PO DAILY [facility] Magnesium Hydroxide (Milk Of Magnesia Liq*) 30 ml PO Q6H PRN Reason: constipation Morphine Sulfate (Morphine Inj (Syringe)*) 2 mg IV Q2H PRN Reason: PAIN Nicotine (Nicotine Inhaler*) 10 mg INH Q2H PRN Reason: CRAVING Topiramate 100mg Tab 100 mg PO BID [facility] Omeprazole (Prilosec Cap*) 20 mg PO BID [facility] Ondansetron HCl (Zofran Tab*) 4 mg PO Q6H PRN Reason: NAUSEA Oxycodone HCl (Roxycodone Tab*) 10 mg PO Q4H PRN Reason: SEVERE PAIN Oxycodone/Acetaminophen (Percocet 5/325 Tab*) 1 tab PO Q3H PRN Reason: PAIN - MODERATE Oxycodone/Acetaminophen (Percocet 5/325 Tab*) 2 tab PO Q3H PRN Reason: PAIN - MODERATE Polyethylene Glycol/Electrolytes (Miralax*) 17 gm PO DAILY PRN Reason: Constipation Tamsulosin HCl (Flomax Cap*) 0.4 mg PO BEDTIME [facility] Venlafaxine HCl (Effexor Tab (Nf)) 150 mg PO BID [facility] Vital Signs 06/14/17 06/14/17 06/14/17 10:30 10:35 10:40 Temperature 97.7 F Pulse Rate 80 82 79 Respiratory 16 14 15 Rate Blood Pressure 120/70 122/72 108/55 (mmHg) O2 Sat by Pulse 100 99 98 Oximetry 06/14/17 06/14/17 06/14/17 10:45 10:50 11:00 Temperature Pulse Rate 75 73 Respiratory 14 16 14 Rate Blood Pressure 130/76 119/75 (mmHg) O2 Sat by Pulse 97 97 Oximetry 06/14/17 06/14/17 06/14/17 11:06 11:15 11:21 Temperature Pulse Rate 71 Respiratory 18 15 22 Rate Blood Pressure 94/80 (mmHg) O2 Sat by Pulse 97 Oximetry 06/14/17 06/14/17 06/14/17 11:30 11:51 12:00 Temperature 98.2 F Pulse Rate 79 71 Respiratory 18 18 16 Rate Blood Pressure 118/71 118/76 (mmHg) O2 Sat by Pulse 97 97 Oximetry 06/14/17 06/14/17 06/14/17 12:02 12:31 12:38 Temperature 98.3 F Pulse Rate 79 Respiratory 16 16 16 Rate Blood Pressure 120/63 (mmHg) O2 Sat by Pulse 97 Oximetry 06/14/17 06/14/17 06/14/17 14:04 14:42 15:14 Temperature 97.8 F 98.3 F Pulse Rate 73 88 Respiratory 16 16 16 Rate Blood Pressure 104/61 93/63 (mmHg) O2 Sat by Pulse 96 96 Oximetry 06/14/17 06/14/17 06/14/17 16:03 16:29 17:14 Temperature 98.0 F Pulse Rate 78 Respiratory 18 16 Rate Blood Pressure 106/60 (mmHg) O2 Sat by Pulse 96 97 Oximetry 06/14/17 06/14/17 06/14/17 18:27 18:33 20:00 Temperature 97.8 F Pulse Rate 74 Respiratory 16 15 Rate Blood Pressure 144/114 100/58 (mmHg) O2 Sat by Pulse 97 Oximetry 06/14/17 06/14/17 06/14/17 20:35 20:36 20:44 Temperature Pulse Rate Respiratory 15 15 Rate Blood Pressure (mmHg) O2 Sat by Pulse 98 Oximetry 06/14/17 06/14/17 06/15/17 22:35 22:36 00:00 Temperature 97.9 F Pulse Rate 66 Respiratory 15 16 20 Rate Blood Pressure 113/60 (mmHg) O2 Sat by Pulse 95 Oximetry 06/15/17 06/15/17 06/15/17 00:10 02:10 03:34 Temperature 97.9 F Pulse Rate 64 Respiratory 15 15 20 Rate Blood Pressure 109/58 (mmHg) O2 Sat by Pulse 97 Oximetry 06/15/17 06/15/17 06/15/17 06:52 07:27 08:52 Temperature 98.2 F Pulse Rate 68 Respiratory 14 16 16 Rate Blood Pressure 101/69 (mmHg) O2 Sat by Pulse 98 Oximetry 06/15/17 06/15/17 09:13 09:20 Temperature Pulse Rate Respiratory 16 Rate Blood Pressure (mmHg) O2 Sat by Pulse 98 Oximetry Oxygen Devices in Use Now: None Appearance: NAD, laying in bed Eyes: No Scleral Icterus Ears/Nose/Mouth/Throat: Mucous Membranes Moist Respiratory: Symmetrical Chest Expansion and Respiratory Effort, Clear to Auscultation Cardiovascular: NL Sounds; No Murmurs; No JVD, RRR Abdominal: NL Sounds; No Tenderness; No Distention Extremities: No Edema Skin: No Rash or Ulcers, - - Dressing to left knee clean, dry and intact Neurological: Alert and Oriented x 3, NL Muscle Strength and Tone Lines/Tubes/Other Access: Clean, Dry and Intact Peripheral IV - site benign Nutrition: Taking PO's Result Diagrams: 06/16/17 05:41 06/15/17 05:06 Microbiology and Other Data: Microbiology 06/14/17 10:31 Nasal Screen MRSA (PCR)(JANAY) - Final Nasal Mrsa Negative 06/14/17 08:32 Gram Stain - Final Knee Left Assess/Plan/Problems-Billing Mr. Stapleton is a 51 yo M with hx of HTN, HLD, ADALID, depression, GERD and B/L TKA now s/p L patellar resurfacing and poly exchange by Dr. Alexis on 06/14/17. - Patient Problems (1) Status post left knee surgery Code(s): Z98.890 - OTHER SPECIFIED POSTPROCEDURAL STATES SNOMED Code(s): 592280097 Comment: - S/P left patellar resurfacing and poly exchange, POD #1 - Management per Orthopedics - Continue PT, bowel regimen, and pain management (2) HTN (hypertension) Code(s): I10 - ESSENTIAL (PRIMARY) HYPERTENSION SNOMED Code(s): 87901332 Comment: - SBP 90-140's - Continue Lisinopril for now, may want to hold if SBP continues to be on the low side (3) ADALID (obstructive sleep apnea) Code(s): G47.33 - OBSTRUCTIVE SLEEP APNEA (ADULT) (PEDIATRIC) SNOMED Code(s): 80125269 Comment: - Continue home CPAP at HS and when napping (4) GERD (gastroesophageal reflux disease) Code(s): K21.9 - GASTRO-ESOPHAGEAL REFLUX DISEASE WITHOUT ESOPHAGITIS SNOMED Code(s): 039617883 Comment: - Continue omeprazole and pepcid (5) Depression Code(s): F32.9 - MAJOR DEPRESSIVE DISORDER, SINGLE EPISODE, UNSPECIFIED SNOMED Code(s): 60441468 Comment: - Continue effexor (6) HLD (hyperlipidemia) Code(s): E78.5 - HYPERLIPIDEMIA, UNSPECIFIED SNOMED Code(s): 21418160 Comment: - Continue atorvastatin (7) DVT prophylaxis Code(s): APV3653 - SNOMED Code(s): 420897952 Comment: - Continue ASA BID per Orthopedics (8) Full code status Code(s): Z78.9 - OTHER SPECIFIED HEALTH STATUS SNOMED Code(s): 392328593 Status and Disposition: Inpatient. Disposition per Orthopedics. Thank you for this consult, we will continue to follow along.
[2017-06-15] MEDS: TOPIRAMATE 100 MG PO SCH ×2 (10:04→20:33)
--- NOTE | 2017-06-15 10:35 | PN ---
Progress Note - Progress Note Date of Service: 06/15/17 SOAP: Subjective: []Patient seen OOB in chair. Had an episode of dizziness with PT while walking in hallway this morning. Also had difficulty voiding early this morning but nursing reports negative bladder scan and has been able to void in BR since while standing. He feels that he would like to wait until tomorrow for discharge home. Objective: [] Vital Signs Temp 98.2 F 06/15/17 07:27 Pulse 68 06/15/17 07:27 Resp 16 06/15/17 09:20 BP 101/69 06/15/17 07:27 Pulse Ox 98 06/15/17 09:13 Intake & Output 06/14/17 06/15/17 06/15/17 18:59 06:59 18:59 Intake Total 2378 3628 670 Output Total 475 1250 625 Balance 1903 2378 45 Intake: IV Fluids 1658 1688 350 ABX - CEFAZOLIN 55 LR 1658 1688 295 Oral 720 1940 320 Output: Urine 375 1250 625 Estimated Blood Loss 100 Other: # Bowel Movements 0 Laboratory Results - last 24 hr 06/15/17 06/15/17 05:06 05:06 Hgb 13.3 L Hct 40 L Sodium 136 Potassium 3.9 Chloride 109 Carbon Dioxide 25 Anion Gap 2 BUN 19 Creatinine 0.81 Est GFR ( Amer) 128.2 Est GFR (Non-Af Amer) 99.7 BUN/Creatinine Ratio 23.5 H Glucose 100 Calcium 8.5 L Left knee dressings are dry and intact calf NT + DF/PF left ankle sensation intact Assessment: []s/p left total knee poly exchange and patella resurfacing , POD #1 Plan: []PT/OT WBAT intital dizziness and voiding issue likely due to narcotics, no retention found discharge home 06/16 ASA 325 mg BID
--- NOTE | 2017-06-15 13:36 | OP ---
DATE OF OPERATION: 06/14/17 - ROOM #339 DATE OF : 61 ATTENDING SURGEON: Edna Alexis MD PEDICURIST: NAVNEET Drake. Ms. Khan did help throughout the procedure with preparation of the leg, wound retraction, manipulation of the knee, and wound closure. ANESTHESIOLOGIST: Dr. Breen. ANESTHESIA: General. PRE-OP DIAGNOSIS: Painful patellofemoral arthritis in the left knee joint. POST-OP DIAGNOSIS: Painful patellofemoral arthritis, left knee joint, polyethylene wear. OPERATIVE PROCEDURE: Left patellar resurfacing with polyethylene exchange. COMPLICATIONS: None. ESTIMATED BLOOD LOSS: 50 cc. TOURNIQUET TIME: 37 minutes. SPECIMENS: Explanted polyethylene sent to Pathology. Micro 4 culture swabs were obtained at the beginning of the case and sent for aerobic and anaerobic cultures and sensitivities. HARDWARE USED: This is [employer] hardware. For the insert, exchange a Triathlon X3 total stabilizer plus tibial insert size 6, 13 thickness was used. For the patella, a Triathlon X3 symmetric patella 36 mm of 10 mm thickness with one package of simplex with tobramycin. BRIEF HISTORY/INDICATIONS: Mr. Stapleton is a 51-year-old gentleman who had a left total knee arthroplasty 10 years ago in [place] with an outside physician. He did not have the patella resurfaced at that time. Over the last few years, the patient has developed patellofemoral pain and loss of cartilage along the patella. Radiographs showed this. Due to the patient's continued pain , decision was made to perform left patellar resurfacing with possible exchange of polyethylene. The patient understood the risks and benefits of the procedure. He understood the risks included, but were not limited to bleeding, infection, damage to nearby structures, continued pain, need for further surgery , intraoperative fracture, nerve palsy, hardware failure or loosening, failure to relieve the pain, stroke, heart attack, blood clot, and . He wished to proceed. INTRAOPERATIVE FINDINGS: Intraoperatively, the patient's femoral and tibial component were without any obvious loosening. He did have some medial laxity of the MCL as well as medial polyethylene wear. Therefore, the polyethylene was exchanged to a more stabilized but equal thickness insert. The patient's patella had full-thickness left cartilage along the medial and lateral patellar facets. DESCRIPTION OF PROCEDURE: Mr. Stapleton was identified in the preanesthesia unit. His left lower extremity was marked as the correct operative site. Informed consent was signed and placed in the chart. The patient was taken to the operating room and placed under general anesthesia. Tourniquet was placed on the left thigh. Lower extremity edema was prepped and draped in the usual sterile fashion. Preop time-out was made to correctly identify the patient side and site. Appropriate perioperative antibiotics were given within 1 hour of incision. The patient's prior midline incision was used. This was opened with a 10 blade , carried down sharply to the extensor mechanism. New 10-blade was used to make a standard medial parapatellar arthrotomy. There was some clear yellow joint fluid without any evidence of purulence. This was collected with culture swabs and sent to Microbiology. Electro-cautery was used to elevate the soft tissue along the superomedial tibia. Infrapatellar fat pad was carefully excised. The patella was everted and it was noted that there was significant full-thickness loss of cartilage. The patient's knee was taken through a range of motion. The knee had good range of motion. Some medial laxity was stressing. The polyethylene was inspected and there was some medial wear. Therefore, an osteotome was used to remove the polyethylene. Trials were placed and the knee was brought through range of motion. A total stabilizer insert thickness 13 was chosen. This was locked into position on the tibial tray without difficulty. The central screw was placed and tapped into a secure position. Knee was taken through range of motion and did have better medial lateral stability. The patella was everted. A 10-mm of patellar bone and cartilage was carefully removed with an oscillating saw. The patella was sized to a size 36. The 3 peg holes were drilled to the size 36 guide. A trial patella was placed and the knee was taken through range of motion. The knee had good patellofemoral tracking. Trial was removed. The patellar bone was carefully washed and dried with sterile saline. A 36, 10-mm thickness Triathlon X3 symmetric patella was cemented on to the patellar bone with simplex and tobramycin cement. Tourniquet was turned down at 37 minutes. The cement was allowed to fully cure. Final range of motion showed good patellofemoral tracking and improved medial lateral ligamentous stability. The knee was copiously irrigated with sterile saline. Electrocautery was used to obtain meticulous hemostasis. The extensor mechanism was closed using interrupted #1 Vicryl. The rest of the incision was closed in a layered fashion using 0 and 2- 0 Vicryl. Skin was closed using running 3-0 nylon suture. Sterile Xeroform, 4 x 4, and Webril were used to cover the incision. Sukhdeep wrap and cold pack were placed over this. The patient's anesthesia was reversed without difficulty. He was taken to the PACU in stable condition. Intended weightbearing will be weightbearing as tolerated. Intended DVT prophylaxis will be Coumadin with a Lovenox bridge. [id number]/[facility] #: [id number] [facility]Jesus
[2017-06-15] MEDS: Atorvastatin* 20 MG TAB PO SCH (18:03)
[2017-06-15] MEDS: Tamsulosin CAP* 0.4 MG PO SCH (20:34)
[2017-06-16] MEDS: oxyCODONE/Acetamin 5/325 MG* TAB PO PRN ×2 (03:01→08:54)
[2017-06-16 05:49] LABS: Hematocrit 40 % (42-52); Hemoglobin 13.5 g/dl (14.0-18.0)
--- NOTE | 2017-06-16 07:27 | PN ---
Subjective Date of Service: 06/16/17 Interval History: Patient seen this morning. Reports no further episodes of dizziness while ambulating. Eating well. Urinating with no issues. Has BP cuff at home. Family History: Unchanged from Admission - DM, CAD, cancer Social History: Unchanged from Admission - 1 PPD smoker x 20 years, no alcohol or illicit drug use Past Medical History: Unchanged from Admission - HTN, HLD, ADALID on CPAP, depression Objective Active Medications: Acetaminophen (Tylenol Tab*) 650 mg PO Q4H PRN PRN Reason: PAIN OR TEMPERATURE Aspirin (Aspirin Tab*) 325 mg PO BID [facility] Last Admin: 06/15/17 20:33 Dose: 325 mg Atorvastatin Calcium (Lipitor*) 40 mg PO 1700 [facility] Last Admin: 06/15/17 18:03 Dose: 40 mg Bisacodyl (Dulcolax Supp*) [address] DAILY PRN PRN Reason: constipation Device (Nicotine Mouth Piece*) 1 each INH .USE WITH NICOTROL PRN PRN Reason: CRAVING Last Admin: 06/14/17 21:40 Dose: 1 each Diphenhydramine HCl (Benadryl Iv*) 12.5 mg IV Q6H PRN PRN Reason: PRURITIS Docusate Sodium (Colace Cap*) 100 mg PO BID [facility] Last Admin: 06/15/17 20:33 Dose: 100 mg Famotidine (Pepcid Tab*) 20 mg PO BID [facility] Last Admin: 06/15/17 20:34 Dose: 20 mg Gabapentin (Neurontin Cap(*)) 600 mg PO BID [facility] Last Admin: 06/15/17 20:34 Dose: 600 mg Lactulose (Lactulose*) 30 ml PO Q6H PRN PRN Reason: constipation Magnesium Hydroxide (Milk Of Magnesia Liq*) 30 ml PO Q6H PRN PRN Reason: constipation Morphine Sulfate (Morphine Inj (Syringe)*) 2 mg IV Q2H PRN PRN Reason: PAIN Nicotine (Nicotine Inhaler*) 10 mg INH Q2H PRN PRN Reason: CRAVING Last Admin: 06/14/17 21:41 Dose: 10 mg Omeprazole (Prilosec Cap*) 20 mg PO BID [facility] Last Admin: 06/15/17 20:34 Dose: 20 mg Ondansetron HCl (Zofran Tab*) 4 mg PO Q6H PRN PRN Reason: NAUSEA Oxycodone HCl (Roxycodone Tab*) 10 mg PO Q4H PRN PRN Reason: SEVERE PAIN Last Admin: 06/16/17 05:44 Dose: 10 mg Oxycodone/Acetaminophen (Percocet 5/325 Tab*) 1 tab PO Q3H PRN PRN Reason: PAIN - MODERATE Oxycodone/Acetaminophen (Percocet 5/325 Tab*) 2 tab PO Q3H PRN PRN Reason: PAIN - MODERATE Last Admin: 06/16/17 03:01 Dose: 2 tab Polyethylene Glycol/Electrolytes (Miralax*) 17 gm PO DAILY PRN PRN Reason: Constipation Tamsulosin HCl (Flomax Cap*) 0.4 mg PO BEDTIME [facility] Last Admin: 06/15/17 20:34 Dose: 0.4 mg Topiramate (Topamax(*)) 100 mg PO BID [facility] Last Admin: 06/15/17 20:33 Dose: 100 mg Venlafaxine HCl (Effexor Tab (Nf)) 150 mg PO BID [facility] Last Admin: 06/15/17 20:34 Dose: 150 mg Vital Signs 06/15/17 06/15/17 06/15/17 07:27 08:00 08:52 Temperature 98.2 F Pulse Rate 68 Respiratory 16 18 16 Rate Blood Pressure 101/69 (mmHg) O2 Sat by Pulse 98 99 Oximetry 06/15/17 06/16/17 06/16/17 23:42 00:33 01:31 Temperature 98.6 F Pulse Rate 65 Respiratory 18 16 Rate Blood Pressure 108/65 (mmHg) O2 Sat by Pulse 97 97 Oximetry 06/16/17 06/16/17 06/16/17 03:01 03:33 05:01 Temperature 98.4 F Pulse Rate 62 Respiratory 18 16 16 Rate Blood Pressure 105/60 (mmHg) O2 Sat by Pulse 97 Oximetry Oxygen Devices in Use Now: None Appearance: Middle-aged, M, laying in bed in NAD Eyes: No Scleral Icterus Ears/Nose/Mouth/Throat: - - Dry MM Neck: NL Appearance and Movements; NL JVP Respiratory: Symmetrical Chest Expansion and Respiratory Effort, Clear to Auscultation Cardiovascular: NL Sounds; No Murmurs; No JVD, RRR Abdominal: NL Sounds; No Tenderness; No Distention Lymphatic: No Cervical Adenopathy Extremities: No Edema, - - L knee with AGUSTÍN wrap and cryounit in place Skin: No Rash or Ulcers Neurological: Alert and Oriented x 3 Result Diagrams: 06/16/17 05:41 06/15/17 05:06 Microbiology and Other Data: Microbiology 06/14/17 10:31 Nasal Screen MRSA (PCR)(JANAY) - Final Nasal Mrsa Negative 06/14/17 08:32 Gram Stain - Final Knee Left Assess/Plan/Problems-Billing Mr. Stapleton is a 51 yo M with hx of HTN, HLD, ADALID, depression, GERD and B/L TKA now s/p L patellar resurfacing and poly exchange by Dr. Alexis on 06/14/17. - Patient Problems (1) HTN (hypertension) Current Visit: No Status: Chronic Code(s): I10 - ESSENTIAL (PRIMARY) HYPERTENSION SNOMED Code(s): 78771170 Comment: - BPs a bit soft, will hold Lisinopril - Instructed patient to hold Lisonopril on d/c and check BPs at home, once SBP > 140 can resume (2) Status post left knee surgery Current Visit: Yes Status: Acute Code(s): Z98.890 - OTHER SPECIFIED POSTPROCEDURAL STATES SNOMED Code(s): 043582202 Comment: - S/P left patellar resurfacing and poly exchange, POD #1 - Management per Orthopedics - Continue PT, bowel regimen, and pain management (3) Depression Current Visit: No Status: Chronic Code(s): F32.9 - MAJOR DEPRESSIVE DISORDER , SINGLE EPISODE, UNSPECIFIED SNOMED Code(s): 87883960 Comment: - Continue effexor (4) GERD (gastroesophageal reflux disease) Current Visit: No Status: Chronic Code(s): K21.9 - GASTRO-ESOPHAGEAL REFLUX DISEASE WITHOUT ESOPHAGITIS SNOMED Code(s): 668320597 Comment: - Continue omeprazole and pepcid (5) HLD (hyperlipidemia) Current Visit: No Status: Chronic Code(s): E78.5 - HYPERLIPIDEMIA, UNSPECIFIED SNOMED Code(s): 50736883 Comment: - Continue atorvastatin (6) ADALID (obstructive sleep apnea) Current Visit: No Status: Chronic Code(s): G47.33 - OBSTRUCTIVE SLEEP APNEA (ADULT) (PEDIATRIC) SNOMED Code(s): 27470278 Comment: - Continue home CPAP at HS and when napping (7) DVT prophylaxis Current Visit: Yes Status: Acute Code(s): LBJ7752 - SNOMED Code(s): 326538247 Comment: - Continue ASA BID per Orthopedics (8) Full code status Current Visit: Yes Status: Acute Code(s): Z78.9 - OTHER SPECIFIED HEALTH STATUS SNOMED Code(s): 111927331 Status and Disposition: Inpatient. Disposition per Orthopedics. Thank you for this consult, we will continue to follow along.
[2017-06-16 08:17] VITALS: BP 114/65
[2017-06-16] MEDS: Famotidine TAB* 20 MG PO SCH (08:53)
[2017-06-16] MEDS: Docusate CAP* 100 MG PO SCH (08:53)
[2017-06-16] MEDS: Aspirin TAB* 325 MG PO SCH (08:53)
[2017-06-16] MEDS: CMCS: Venlafaxine TAB (NF) 25 MG TAB PO SCH (08:53)
[2017-06-16] MEDS: Omeprazole CAP* 20 MG PO SCH (08:53)
[2017-06-16] MEDS: TOPIRAMATE 100 MG PO SCH (08:53)
[2017-06-16] MEDS: Gabapentin CAP(*) 300 MG PO SCH (08:54)
--- NOTE | 2017-06-16 09:01 | PN ---
Progress Note - Progress Note Date of Service: 06/16/17 SOAP: Subjective: [Patient seen OOB in chair, shaving this am. Pt denies any episodes of dizziness today. No difficulty voiding. States that he was having some trouble sleeping last night due to the pain but feels much improved this morning. He feels ready to go home today. Objective: Left knee dressings changed today. Incision is c/d/i/. Kaleb had moderate amount of blood. No active bleeding from incision site today. calf NT, + DF/PF left ankle, sensation intact Vital Signs Temp 97.2 F 06/16/17 07:35 Pulse 62 06/16/17 07:35 Resp 20 06/16/17 08:54 BP 114/65 06/16/17 07:35 Pulse Ox 98 06/16/17 07:35 Intake & Output 06/15/17 06/16/17 06/16/17 18:59 06:59 18:59 Intake Total 1070 1440 Output Total 1325 1100 Balance -255 340 Intake: IV Fluids 350 ABX - CEFAZOLIN 55 LR 295 Oral 720 1440 Output: Urine 1325 1100 Assessment: []s/p left total knee poly exchange and patella resurfacing , POD #2 Plan Discharge today PT/OT WBAT, 2x today. Continue at home Continue ASA 325 mg BID Utilize Percocet 5/325 for pain relief Follow up with Dr. Alexis in 10 - 14 days
--- NOTE | 2017-06-18 15:06 | DS ---
DISCHARGE SUMMARY: DATE OF ADMISSION: 06/14/17 DATE OF DISCHARGE: 06/16/17 PROVIDER: Edna Alexis MD * (DICTATED BY NAVNEET VEGA) ADMITTING DIAGNOSIS: Left patellar resurfacing. COMPLICATIONS: PT/OT. HISTORY OF PRESENT ILLNESS: Mr. Stapleton is a 51-year-old gentleman with complaints of left knee pain. He underwent a left total knee arthroplasty with Dr. Davis in [place] approximately 10 years ago. He has had sharp peripatellar pain and has failed conservative management. He has elected to proceed with a left patellar resurfacing, which was performed on 06/14/17. HOSPITAL COURSE: The patient was admitted to [facility] on 06/14/17 and underwent a left patellar resurfacing with no complications. The patient recovered briefly in the postanesthesia care unit and then was transferred to the short-stay unit in stable condition. On postop day #1, the patient's H and H were 13.3 and 40. Dressing was clean, dry, and intact. Left lower extremity was neurovascularly intact. He could demonstrate dorsiflexion and plantar flexion with good strength. The patient was able to get out of bed with physical therapy. Pain was controlled with oral and IV medication. On the postop day #2, the urinary catheter was discontinued. The patient was able to void without difficulty. Incision was found to be benign with minimal drainage. No erythema or warmth. The patient's H and H were 13.5 and 40. The pain was controlled with oral pain medication. The patient was able to ambulate with use of a rolling walker and assistance. Throughout the hospital course, vital signs remained stable and the patient was afebrile. DISCHARGE CONDITION: Good. DISCHARGE MEDICATIONS: The patient will take: 1. Aspirin 325 by mouth twice a day for DVT prophylaxis. 2. Percocet 5/325 for pain management. 3. Colace 100. HOME MEDICATIONS: 1. Vitamin D. 2. Gabapentin. 3. Ibuprofen. 4. Lisinopril. 5. Ranitidine. 6. Fluticasone nasal spray. 7. Venlafaxine. 8. Topiramate. 9. Pantoprazole sodium. 10. Cialis. 11. Aspirin. 12. EpiPen. 13. Simvastatin. DISCHARGE INSTRUCTIONS: Weightbearing status is weightbearing as tolerated. Wound care: Okay to shower. No bathing, swimming, or submerging the wound. Use gentle soap, pat dry. Cover with gauze, Sukhdeep wrap, or tape. Call orthopedic office for increased drainage, redness, increased pain or fever. Go to the ER with shortness of breath or chest pain. Diet: Regular diet. Increase fluids and fiber to prevent constipation. Continue to use stool softeners, call office if no bowel motion within 48 hours. Continue physical therapy and occupational therapy as shown. Visiting home nurses to do wound check. Antibiotics prior to any dental work. Followup in [address] Alexis and call for an appointment. NAVNEET VEGA [id number]/[facility] #: [id number] MTDJesus
== END 2017-06-16 11:05 | disposition home or self-care (01) ==
LOC: EDSTATUS 07:30 → AA 06-14 06:28 → INTOOBSV 06-14 06:28 → SSU 06-14 12:43
PROVIDERS: ADMIT Orthopaedic Surgery Adult Reconstructive Orthopaedic Surgery; ATTEND Orthopaedic Surgery Adult Reconstructive Orthopaedic Surgery
PROC: 0SWD0JC Revision of Synthetic Substitute in Left Knee Joint, Patellar Surface, Open Approach (ICD-10-PCS; principal; 2017-06-14 08:00)
DX: M25.562 Pain in left knee (principal); Z96.653 Presence of artificial knee joint, bilateral; R01.1 Cardiac murmur, unspecified; I10 Essential (primary) hypertension; E66.01 Morbid (severe) obesity due to excess calories; G47.33 Obstructive sleep apnea (adult) (pediatric); Z86.14 Personal history of Methicillin resistant Staphylococcus aureus infection; F32.9 Major depressive disorder, single episode, unspecified; K21.9 Gastro-esophageal reflux disease without esophagitis; E78.5 Hyperlipidemia, unspecified; Z79.82 Long term (current) use of aspirin; Z79.899 Other long term (current) drug therapy; Z88.8 Allergy status to other drugs, medicaments and biological substances
CPT/HCPCS: 36415; 80048; 85014; 85018; 87070; 87073; 87205; 87641; 94760; 96374; A9270-GY; C1776; G0378; G8978-GP-CI; G8978-GP-CJ; G8979-GP-CI; G8980-GP-CI; J0690; J1100; J1170; J1885; J2250; J2405; J2704; J3010

== ENCOUNTER 2017-08-29 09:25 | Inpatient (IN) | payer MEDICARE ==
--- NOTE | 2017-08-22 21:30 | HP ---
HISTORY AND PHYSICAL: DATE OF SURGERY: 08/29/17 SURGEON: Edna Alexis MD * (DICTATED BY NAVNEET HUNTER) PROCEDURE: Right knee patellar resurfacing. CHIEF COMPLAINT: Right knee pain. HISTORY OF PRESENT ILLNESS: Mr. Stapleton is a 51-year-old gentleman who underwent a right total knee arthroplasty at an outside facility and continues to have chronic daily pain. He has elected to proceed with a right knee patellar resurfacing, which is scheduled for 08/29/[address] Alexis. PAST MEDICAL HISTORY: 1. GERD. 2. Heart murmur. 3. High cholesterol. 4. Sleep apnea. 5. Hypertension. 6. History of MRSA infection. PAST SURGICAL HISTORY: 1. Bilateral knee arthroscopies. 2. Left patellar resurfacing. 3. Appendectomy. 4. Cholecystectomy. 5. Kidney stone removal. CURRENT MEDICATIONS: 1. Ranitidine. 2. Venlafaxine. 3. Pantoprazole sodium. 4. Topiramate. 5. Simvastatin. 6. Gabapentin. 7. Ibuprofen. 8. Clonazepam. 9. Vitamin D. 10. Tylenol. 11. Aspirin 81 mg. ALLERGIES: WARFARIN, BEE VENOM. FAMILY HISTORY: Diabetes, heart disease, and cancer. SOCIAL HISTORY: He is a 51-year-old gentleman, lives with his . He smokes a pack a day for the last 20 years. He denies use of drugs or alcohol. REVIEW OF SYSTEMS: A complete 14-point review of systems is reviewed with the patient, was positive for history of MRSA infection. He denies history of DVT or PE, or anesthesia problems. PHYSICAL EXAMINATION GENERAL: He is well developed, well nourished, in no acute distress. He is alert and oriented x3. Pleasant mood and appropriate affect. VITAL SIGNS: He stands 5 feet 10 inches tall, weighs 299 pounds. His blood pressure is 125/80, his heart rate is 71. HEENT: Normocephalic, atraumatic. NECK: Supple. No palpable lymph nodes. PULMONARY: Lungs are clear to auscultation bilaterally. CARDIO: Regular rate and rhythm. Strong S1, S2. ABDOMEN: Soft, nontender, nondistended. MUSCULOSKELETAL: Right lower extremity, the skin is intact. There are no open wounds or abrasions. There is a well-healed scar over the anterior right knee. 2+ distal radial pulses. Overall neurovascularly intact. NEUROLOGICAL: Cranial nerves II through XII are intact. ASSESSMENT AND PLAN: Mr. Stapleton is a 51-year-old gentleman with complaints of right knee pain. He underwent a right total knee arthroplasty at an outside facility. He continues to have pain and has elected to proceed with a right knee patellar resurfacing, which is scheduled for 08/29/[address] Alexis has discussed the risks and benefits of the surgery at today's visit and all of his questions were answered. Prescription for aspirin, Percocet, and Colace were sent to his pharmacy for postoperative pain control and DVT prophylaxis. He will see Dr. Alexis back 2 week after the surgery. NAVNEET HUNTER [id number]/[facility] #: [id number] MTDD
[~2017-08-29 09:25] MED LIST: Buffered Lidocaine 0.9% SYRIN* 5 ML/SYR SYRINGE INTRADERM ONE; Famotidine IV* 10 MG/ML 2 ML (20 mg) IV ONE
[2017-08-29] MEDS ORDERED: ceFAZolin 2 GM PREMIX (*) 50 ML IVPB ONE (09:47)
[2017-08-29] MEDS ORDERED: ceFAZolin 1 GM ADVAN(*) 1 GM ADDV.VIAL IVPB ONE (09:47)
[2017-08-29] MEDS ORDERED: Famotidine IV* 10 MG/ML 2 ML (20 mg) ONE (09:47)
[2017-08-29] MEDS ORDERED: Buffered Lidocaine 0.9% SYRIN* 5 ML/SYR SYRINGE ONE (09:47)
[2017-08-29] MEDS ORDERED: KETAMINE HCL* 50 MG/ML 10 ML VIAL ONE (11:14)
[2017-08-29] MEDS ORDERED: Lidocaine 2% PF * 5 ML VIAL ONE (11:14)
[2017-08-29] MEDS ORDERED: Midazolam* 1 MG/ML 5 ML VIAL (5 MG) ONE (11:14)
[2017-08-29] MEDS ORDERED: Ketorolac INJ* 30 MG/ML 1 ML VIAL ONE (11:14)
[2017-08-29] MEDS ORDERED: Ondansetron INJ* 2 MG/ML VIAL ONE (11:14)
[2017-08-29] MEDS ORDERED: Propofol* 10 MG/ML 20 ML BTL IV PUSH ONE ×2 (11:14→13:15)
[2017-08-29] MEDS ORDERED: Dexamethasone IV* 4 MG/ML 1 ML (4 MG) ONE (11:14)
[2017-08-29] MEDS ORDERED: fentaNYL* 50 MCG/ML 5 ML VIAL (250 MCG VIAL) ONE ×2 (11:14→13:14)
[2017-08-29] MEDS ORDERED: Bupivacaine 0.5% SDV PF* 30 ML VIAL ONE (11:30)
[2017-08-29] MEDS ORDERED: EPHEDrine (Pressors)* 50 MG/ML VIAL ONE (13:22)
[2017-08-29] MEDS ORDERED: Ondansetron INJ* 2 MG/ML VIAL IV PRN (14:04)
[2017-08-29] MEDS ORDERED: HYDROmorphone INJ* 1 MG/ML CARPUJECT SYRINGE ONE ×2 (14:09→15:01)
[2017-08-29] MEDS ORDERED: Bisacodyl SUPP* 10 MG SUPP PR PRN (14:43)
[2017-08-29] MEDS ORDERED: oxyCODONE/Acetamin 5/325 MG* TAB PO PRN (14:43)
[2017-08-29] MEDS ORDERED: Ondansetron TAB* 4 MG PO PRN (14:43)
[2017-08-29] MEDS ORDERED: Magnesium Hydroxide LIQ* 30 ML UDC PO PRN (14:43)
[2017-08-29] MEDS ORDERED: Polyethylene Glycol 3350* 17 GM PACKET PO PRN (14:43)
[2017-08-29] MEDS ORDERED: Acetaminophen TAB* 325 MG PO PRN (14:43)
[2017-08-29] MEDS ORDERED: diPHENhydraMINE IV* 50 MG/ML 1 ml VIAL (BENADRYL) IV PRN (14:43)
[2017-08-29] MEDS ORDERED: Morphine INJ* 2 MG/ML 1 ML CARPUJECT IV PRN (14:43)
[2017-08-29] MEDS ORDERED: fentaNYL* 50 MCG/ML 2 ML VIAL (100 MCG VIAL) ONE (14:50)
[2017-08-29] MEDS: fentaNYL* 50 MCG/ML 2 ML VIAL (100 MCG VIAL) IV PRN ×2 (14:52→14:59)
[2017-08-29] MEDS ORDERED: ceFAZolin 1 GM VIAL(*) 1 GM in NS 0.9% 50 ML* 50 ML IVPB SCH (15:00)
[2017-08-29] MEDS: HYDROmorphone INJ* 1 MG/ML CARPUJECT SYRINGE IV PRN ×2 (15:10→15:20)
--- NOTE | 2017-08-29 15:54 | RAD ---
HISTORY: Status post right total knee arthroplasty revision COMPARISONS: August 19, 2017 VIEWS: 3, Frontal and lateral views of the right knee FINDINGS: BONE DENSITY: Normal. BONES: The patient is status post right knee arthroplasty. There is no hardware failure or osteolysis. JOINTS: The patient is status post right knee arthroplasty ALIGNMENT: There is no dislocation. SOFT TISSUES: There is post surgical change to the soft tissue OTHER FINDINGS: None. IMPRESSION: STATUS POST RIGHT KNEE ARTHROPLASTY.
[2017-08-29] MEDS: oxyCODONE/Acetamin 5/325 MG* TAB PO PRN ×2 (17:42→22:44)
[2017-08-29] MEDS: Gabapentin CAP(*) 300 MG PO SCH (20:08)
[2017-08-29] MEDS: Topiramate TAB(*) 100 MG PO SCH (20:09)
[2017-08-29] MEDS: Omeprazole CAP* 20 MG PO SCH (20:09)
[2017-08-29] MEDS: ceFAZolin 1 GM VIAL(*) 1 GM in NS 0.9% 50 ML* 50 ML IVPB SCH (20:09)
[2017-08-29] MEDS: Docusate CAP* 100 MG PO SCH (20:09)
[2017-08-29] MEDS: Famotidine TAB* 20 MG PO SCH (20:09)
[2017-08-29] MEDS ORDERED: Mouth Piece, Nicotine* 1 EACH CARTRIDGE INH ONE (21:00)
[2017-08-29] MEDS: Nicotine Inhaler* 10 MG AMP INH PRN (21:21)
[2017-08-30] MEDS: oxyCODONE/Acetamin 5/325 MG* TAB PO PRN ×4 (01:53→19:07)
[2017-08-30] MEDS: oxyCODONE TAB* 5 MG TAB PO PRN ×2 (03:43→12:44)
[2017-08-30] MEDS: ceFAZolin 1 GM VIAL(*) 1 GM in NS 0.9% 50 ML* 50 ML IVPB SCH ×2 (04:55→11:56)
--- NOTE | 2017-08-30 05:11 | OP ---
DATE OF OPERATION: 08/29/17 - ROOM #341 DATE OF : 61 ATTENDING SURGEON: Edna Alexis MD GROUP ACCOUNT DIRECTOR: NAVNEET Drake. Ms. Khan did help throughout the procedure with preparation of the leg, wound retraction, manipulation of the knee, and wound closure. ANESTHESIOLOGIST: Dr. Johnie Osorio. ANESTHESIA: General. PRE-OP DIAGNOSES: Painful right total knee arthroplasty, patellofemoral arthrosis. POST-OP DIAGNOSES: Painful right total knee arthroplasty, patellofemoral arthrosis. OPERATIVE PROCEDURE: Revision right total knee arthroplasty with patellar resurfacing, scar tissue excision. TOURNIQUET TIME: 20 minutes. ESTIMATED BLOOD LOSS: 200 cc. COMPLICATIONS: None. SPECIMENS: Bone and cartilage from the patella as well as soft tissue from the capsule was sent to pathology, multiple culture swabs from joint fluid were sent for cultures and sensitivities. HARDWARE USED: Luis Enrique, size 35 patella was used with simplex with tobramycin cement. BRIEF HISTORY/INDICATIONS: Mr. Stapleton is a 51-year-old gentleman, who had right total knee arthroplasty without patellar resurfacing with Dr. Bishop in [place] almost 10 years ago. This is uncemented total knee arthroplasty. The patient has patellofemoral pain with range of motion in stairs. This became quite severe and he failed conservative treatment with physical therapy. The patient did extremely well after his left patella was resurfaced several months ago and wishes to proceed with the right knee patellar resurfacing. The patient understood if I found any loosening of his femoral or tibial implant, I would revise the entire knee at the time of surgery. He wished to proceed with us. Informed consent was obtained from the patient. He understood the risks of the procedure included but were not limited to bleeding, infection, damage to nearby structures, continued pain, need for further surgery, intraoperative fracture, nerve palsy, hardware failure or loosening, knee stiffness, loss of motion, stroke, heart attack, blood clot, and . He wishes to proceed. INTRAOPERATIVE FINDINGS: Intraoperatively, the patient's femur and tibia were not noted to have any signs of loosening. He did have significant scar tissue along the suprapatellar pouch medial and lateral gutter. He had significant joint fluid, but no obvious purulence. He was noted to have end-stage arthritis of the patella, both medial and lateral facets, had complete loss of cartilage and significant osteophyte formation. DESCRIPTION OF PROCEDURE: Mr. Stapleton was identified in the preanesthesia unit. His right lower extremity was marked as the correct operative site. Informed consent was signed and placed in the chart. The patient was taken to the operating room and placed under general anesthesia. A Meléndez catheter was placed. Tourniquet was placed on the right thigh. The right lower extremity was prepped and draped in the usual sterile fashion. Preop time-out was made to correctly identify the patient's side and site. Appropriate perioperative antibiotics were given within 1 hour of incision. Tourniquet was inflated until the tourniquet time for this procedure was 20 minutes. The patient's prior midline incision was opened. Standard medial parapatellar arthrotomy was made with a 10 blade. The patella was subluxed laterally. Joint fluid was collected with multiple culture swabs and sent for cultures and sensitivities. Electrocautery was used to subperiosteally elevate soft tissue along the superomedial tibia. Electrocautery was used to perform scar tissue excision along the medial and lateral gutter as well as the suprapatellar pouch. At this time, the integrity of the femoral and tibial component was assessed. There was no obvious significant polyethylene wear noted. This was not a modular polyethylene, which could be exchanged. This is a monoblock design with the uncemented tibia. Careful probing and light tamping along the femoral and tibial component showed no obvious loosening. Decision was made to proceed with patellar resurfacing only rather than revision of all 3 components. The patella was everted. Scar tissue was removed from around the patella. There was complete loss of cartilage along the medial and lateral patellar facet. 9 mm of patellar bone and cartilage was carefully removed with an oscillating saw. The patella was sized to a size 35. Three peg holes were drilled through the size 35 guide. The trial patella was placed and the knee was taken through a range of motion. There was good patellofemoral tracking. The bony cut surface of the patella was copiously irrigated and dried. Final implant with a 35-mm 3-peg poly patella. This was cemented on to the patella using simplex cement with tobramycin. Once the cement had fully cured, the locking mechanism was removed. The knee was copiously irrigated with sterile saline. The extensor mechanism was closed using interrupted #1 Vicryls. The rest of the incision was closed in a layered fashion using 0 and 2-0 Vicryls. Skin was closed using running 3-0 nylon suture. Sterile Xeroform, 4x4s, and Webril were placed over the incision. Sukhdeep wrap and cold pack were placed over this. The patient's anesthesia was reversed and he was taken to the PACU in stable condition. Intended weightbearing will be weightbearing as tolerated. Intended DVT prophylaxis will be Coumadin with a Lovenox bridge. [id number]/[facility] #: [id number] [facility]OSPITALJesus
[2017-08-30 06:14] LABS: Hematocrit 41 % (42-52); Hemoglobin 14.1 g/dl (14.0-18.0)
[2017-08-30 06:29] LABS: BUN/Creatinine Ratio 18.5 (8-20); Calcium 8.8 mg/dL (8.6-10.3); EGFR African American 110.7 (>60); EGFR Non-African American 86.1 (>60); Potassium 4.1 mmol/L (3.5-5.0)
--- NOTE | 2017-08-30 08:23 | PN ---
Progress Note - Progress Note Date of Service: 08/30/17 SOAP: Subjective: resting comfortably with no complaints Objective: Vital Signs Temp Pulse Resp BP Pulse Ox 98.3 F 50 16 101/46 98 08/30/17 07:34 08/30/17 07:34 08/30/17 07:50 08/30/17 07:34 08/30/17 07:34 Laboratory Last Values Hgb 14.1 g/dl (14.0-18.0) 08/30/17 06:00 Hct 41 % (42-52) L 08/30/17 06:00 INR (Anticoag Therapy) 0.95 (0.89-1.11) 08/30/17 06:00 Sodium 138 mmol/L (133-145) 08/30/17 06:00 Potassium 4.1 mmol/L (3.5-5.0) 08/30/17 06:00 Chloride 110 mmol/L (101-111) 08/30/17 06:00 Carbon Dioxide 24 mmol/L (22-32) 08/30/17 06:00 Anion Gap 4 mmol/L (2-11) 08/30/17 06:00 BUN 17 mg/dL (6-24) 08/30/17 06:00 Creatinine 0.92 mg/dL (0.67-1.17) 08/30/17 06:00 Est GFR ( Amer) 110.7 (>60) 08/30/17 06:00 Est GFR (Non-Af Amer) 86.1 (>60) 08/30/17 06:00 BUN/Creatinine Ratio 18.5 (8-20) 08/30/17 06:00 Glucose 122 mg/dL (70-100) H 08/30/17 06:00 Calcium 8.8 mg/dL (8.6-10.3) 08/30/17 06:00 incision: c/d/i PE: 2+ DP pulses, 5/5 LE strengths, intact sensation, able to SLR Assessment: s/p right TK revision, patella resurfacing Plan: 1) Lovenox/SCD's for DVT prophylaxis; will go home on ASA 325mg BID 2) PT/OT- WBAT 3) Abx for 24 hours post-op 4) Home tomorrow, F/U with Dr. Alexis in clinic in 2 weeks
[2017-08-30] MEDS: Nicotine Inhaler* 10 MG AMP INH PRN (08:32)
[2017-08-30] MEDS: Venlafaxine EXT RELEASE CAP* 75 MG PO SCH (08:33)
[2017-08-30] MEDS: Gabapentin CAP(*) 300 MG PO SCH ×2 (08:34→21:31)
[2017-08-30] MEDS: Famotidine TAB* 20 MG PO SCH ×2 (08:34→21:31)
[2017-08-30] MEDS: Omeprazole CAP* 20 MG PO SCH ×2 (08:34→21:30)
[2017-08-30] MEDS: Atorvastatin* 20 MG TAB PO SCH (08:34)
[2017-08-30] MEDS: Topiramate TAB(*) 100 MG PO SCH ×2 (08:34→21:30)
[2017-08-30] MEDS: Docusate CAP* 100 MG PO SCH ×2 (08:34→21:30)
[2017-08-30] MEDS: Enoxaparin(*) 40 MG/0.4 ML SYR SUBCUT SCH (11:56)
[2017-08-31] MEDS: oxyCODONE/Acetamin 5/325 MG* TAB PO PRN ×3 (00:59→09:23)
[2017-08-31] MEDS: oxyCODONE TAB* 5 MG TAB PO PRN (01:45)
[2017-08-31] MEDS: Nicotine Inhaler* 10 MG AMP INH PRN (01:47)
[2017-08-31] MEDS ORDERED: Morphine INJ* 2 MG/ML 1 ML SYRINGE (TWO MG - NEW SYRINGE VERSION) IV PRN (02:48)
[2017-08-31 06:25] LABS: Hematocrit 40 % (42-52); Hemoglobin 14.1 g/dl (14.0-18.0)
--- NOTE | 2017-08-31 07:38 | PN ---
Progress Note - Progress Note Date of Service: 08/31/17 SOAP: Subjective: Pt. is alert, c/o pain but wants to go home today. Objective: RLE - dressing changed, inc c/c/i. NVI distally, min edema. Vital Signs: Temp Pulse Resp BP Pulse Ox 99.0 F 59 16 122/68 95 08/31/17 03:30 08/31/17 03:30 08/31/17 06:24 08/31/17 03:30 08/31/17 03:30 Laboratory Results - last 24 hr 08/31/17 08/31/17 05:56 05:56 Hgb 14.1 Hct 40 L INR (Anticoag Therapy) 0.92 Assessment: 51 yo M POD 2 s/p R revision tka/patellar resurfacing Plan: wbat rle pt/ot plan d/c to home today lovenox today, home on ecase 325 bid will send ms oconnell to pharmacy for d/c
[2017-08-31] MEDS: Gabapentin CAP(*) 300 MG PO SCH (08:42)
[2017-08-31] MEDS: Venlafaxine EXT RELEASE CAP* 75 MG PO SCH (08:43)
[2017-08-31] MEDS: Famotidine TAB* 20 MG PO SCH (08:43)
[2017-08-31] MEDS: Atorvastatin* 20 MG TAB PO SCH (08:43)
[2017-08-31] MEDS: Topiramate TAB(*) 100 MG PO SCH (08:43)
[2017-08-31] MEDS: Docusate CAP* 100 MG PO SCH (08:43)
[2017-08-31] MEDS: Omeprazole CAP* 20 MG PO SCH (08:43)
[2017-08-31] MEDS: Enoxaparin(*) 40 MG/0.4 ML SYR SUBCUT SCH (11:56)
[2017-08-31 11:59] VITALS: BP 124/67
--- NOTE | 2017-08-31 16:26 | DS ---
DATE OF ADMISSION: 08/29/2017. DATE OF DISCHARGE: 08/31/2017. ATTENDING PHYSICIAN: Dr. Edna Alexis * (dictated by NAVNEET Abbott). ADMISSION DIAGNOSIS: Painful right total knee arthroplasty, patellofemoral arthrosis. DISCHARGE DIAGNOSIS: Painful right total knee arthroplasty, patellofemoral arthrosis. SURGERY PERFORMED: Revision right total knee arthroplasty with patellar resurfacing and excision of scar tissue. HOSPITAL COURSE: The patient is a 51-year-old male who underwent right total knee arthroplasty in [place] roughly ten years ago. At that time, he did not have patella resurfacing, but over the last several months developed severe pain in the patellofemoral region, especially with ambulation up and down stairs. He failed conservative management with physical therapy and did well after the left patella was resurfaced a few months ago. He elected to proceed with right patellar resurfacing and was taken to the operating room under the care of Dr. Edna Alexis for the aforementioned procedure. He tolerated the procedure well and left the operating room in stable condition. Postoperatively , he progressed satisfactorily with his PT/OT goals, although he still had mild to moderate pain this morning. He felt that he could manage at home with his oral pain medications and was found to be stable medically and orthopedically for discharge to home on 08/31/2017. CONDITION ON DISCHARGE: Vital signs are stable with a temperature of 98, pulse 67, respiratory rate 18, O2 sat is 97 percent on room air, blood pressure 129/ 68. His H and H was 14.1 and 40. His calf is soft and nontender. He has active dorsiflexion and plantarflexion of the right ankle. His wound is healing without evidence of infection. PLAN: Discharge to home. Continue to bear weight as tolerated on the right lower extremity. Continue with physical therapy exercise program bearing weight as tolerated. We recommend aspirin 325 mg p.o. b.i.d. with food. He has Percocet pain medication and will continue with the Colace while on the narcotic pain medication. He has a follow-up appointment in roughly ten days in the office with Dr. Alexis. If he has an difficulties with increased pain, swelling, calf pain or swelling, fever, chills, redness or drainage about his incision, the office will be contacted prior to his scheduled appointment. NAVNEET SOLO [id number]/[facility] #: [id number] [facility]Jesus
== END 2017-08-31 12:10 | disposition home health service (06) | DRG 468 ==
LOC: AA 09:25 → SSU 16:40
PROVIDERS: ADMIT Orthopaedic Surgery Adult Reconstructive Orthopaedic Surgery; ATTEND Orthopaedic Surgery Adult Reconstructive Orthopaedic Surgery
PROC: 0SWC0JC Revision of Synthetic Substitute in Right Knee Joint, Patellar Surface, Open Approach (ICD-10-PCS; principal; 2017-08-29 12:00)
DX: T84.84XA Pain due to internal orthopedic prosthetic devices, implants and grafts, initial encounter (principal); E78.00 Pure hypercholesterolemia, unspecified; K21.9 Gastro-esophageal reflux disease without esophagitis; Y79.2 Prosthetic and other implants, materials and accessory orthopedic devices associated with adverse incidents; G47.30 Sleep apnea, unspecified; I10 Essential (primary) hypertension; F17.200 Nicotine dependence, unspecified, uncomplicated; Z96.651 Presence of right artificial knee joint; F31.9 Bipolar disorder, unspecified; M25.761 Osteophyte, right knee; Z86.14 Personal history of Methicillin resistant Staphylococcus aureus infection; Z87.442 Personal history of urinary calculi; Z79.82 Long term (current) use of aspirin; Z88.8 Allergy status to other drugs, medicaments and biological substances; Z91.030 Bee allergy status; Z83.3 Family history of diabetes mellitus; Y92.9 Unspecified place or not applicable; Z82.49 Family history of ischemic heart disease and other diseases of the circulatory system; Z80.9 Family history of malignant neoplasm, unspecified
CPT/HCPCS: 36415; 80048; 85014; 85018; 85610; 87070; 87073; 87205; 88304; 88311; 94760; 99406; A9270-GY; C1776; J0690; J1100; J1170; J1650; J1885; J2250; J2270; J2405; J2704; J3010

== ENCOUNTER 2018-04-19 08:07 | Day surgery (SDC) | payer MEDICARE ==
[~2018-04-19 08:07] MED LIST changes: -Famotidine IV* 10 MG/ML 2 ML (20 mg) IV ONE
[2018-04-19] MEDS ORDERED: Acetaminophen TAB* 325 MG PO PRN (09:26)
[2018-04-19] MEDS ORDERED: Ondansetron ODT TAB* 4 MG PO PRN (09:26)
[2018-04-19] MEDS ORDERED: HYDROcodone/ACETAMIN 5-325 MG* 1 TAB PO PRN (09:26)
[2018-04-19] MEDS ORDERED: Naloxone* 0.4 MG/ML 1 ML VIAL IV PRN (09:26)
[2018-04-19] MEDS ORDERED: fentaNYL* 50 MCG/ML 2 ML VIAL (100 MCG VIAL) IV PRN (09:26)
[2018-04-19] MEDS ORDERED: Levalbuterol 0.63MG/3ML NEB* UNIT OF USE INH PRN (09:26)
[2018-04-19] MEDS ORDERED: PROCHLORPERAZINE INJ 5 MG/ML 2 ML VIAL IV PRN (09:26)
[2018-04-19] MEDS ORDERED: DiMENhydriNATE IV* 50 MG/ML VIAL IV PUSH PRN (09:26)
[2018-04-19] MEDS ORDERED: Famotidine IV* 10 MG/ML 2 ML (20 mg) ONE (09:36)
[2018-04-19] MEDS ORDERED: fentaNYL* 50 MCG/ML 2 ML VIAL (100 MCG VIAL) ONE ×2 (09:36→10:56)
[2018-04-19] MEDS ORDERED: Midazolam* 1 MG/ML 2 ML VIAL (2 MG) ONE (09:36)
[2018-04-19] MEDS ORDERED: Propofol* 10 MG/ML 20 ML BTL IV PUSH ONE (10:20)
[2018-04-19] MEDS ORDERED: Dexamethasone IV* 4 MG/ML 1 ML (4 MG) ONE (10:20)
[2018-04-19] MEDS ORDERED: Lidocaine 2% PF * 5 ML VIAL ONE (10:20)
[2018-04-19] MEDS ORDERED: ceFAZolin 1 GM in Dextrose (*) 2 GM/100 ML BAG IVPB ONE (10:40)
[2018-04-19 11:33] VITALS: BP 119/68
--- NOTE | 2018-04-20 08:35 | OP ---
DATE OF OPERATION: 04/19/18 - SDS DATE OF : 61 SURGEON: Carlos Gutierrez MD. PRE-OP DIAGNOSIS: Left neck lipoma. POST-OP DIAGNOSIS: Left neck lipoma. OPERATIVE PROCEDURE: Excision of left neck lipoma. BRIEF HISTORY: This 52-year-old gentleman presenting with large lipoma of the angle of the mandible extending over into the deep neck as well as over to the parotid. It is approximately 5 cm x 5 cm. DESCRIPTION OF PROCEDURE: The patient was taken to the operating room, general anesthetic was given, the patient was intubated with LMA. Left neck was then prepped and draped in the usual fashion. Curvilinear incision made about 2 cm below the angle of mandible. Subdermal flaps were elevated. Subsequently blunt and sharp dissection was carried out until the lipoma was identified. Careful blunt and sharp dissection with bipolar was carried out throughout the extents of the lipoma. Once the lipoma was removed, the wound was copiously irrigated. The wound was then closed in two layers using Vicryl and Dermabond. Patient was awakened, extubated, and sent to recovery room in stable condition. Instrument and sponge counts were correct. Blood loss minimal. [id number]/[facility] #: [id number] MTDD
== END 2018-04-19 12:08 | disposition home or self-care (01) ==
LOC: OR 08:07
PROVIDERS: ATTEND Otolaryngology
DX: D17.0 Benign lipomatous neoplasm of skin and subcutaneous tissue of head, face and neck (principal); I10 Essential (primary) hypertension; G47.33 Obstructive sleep apnea (adult) (pediatric); K21.9 Gastro-esophageal reflux disease without esophagitis; F31.89 Other bipolar disorder; Z79.899 Other long term (current) drug therapy; E53.8 Deficiency of other specified B group vitamins; E78.00 Pure hypercholesterolemia, unspecified
CPT/HCPCS: 88304; J0690; J1100; J2250; J2704; J3010

== ENCOUNTER 2018-04-21 13:23 | Emergency (ER) | payer MEDICARE ==
[2018-04-21] MEDS ORDERED: NS 0.9% 1000 ML* 1,000 ML IV ONE (16:15)
[2018-04-21] MEDS ORDERED: Ondansetron ODT TAB* 4 MG PO ONE (16:16)
[2018-04-21] MEDS ORDERED: NS 0.9% 1000 ML* 2,000 ML IV ONE (16:16)
[2018-04-21 16:39] LABS: ABS Basophils 0.1 10^3/ul (0-0.2); ABS Eosinophils 0.6 10^3/ul (0-0.6); ABS Lymphocytes 3.2 10^3/ul (1.0-4.8); ABS Monocytes 1.1 10^3/ul (0-0.8); ABS Nucleated RBC 0 10^3/ul; Hematocrit 54 % (42-52); Hemoglobin 18.2 g/dl (14.0-18.0); Lymphocyte % 24.4 % (25-47); Mean Corpuscular HGB Conc 34 g/dl (31-36); Mean Corpuscular Hemoglobin 29 pg (27-31); Mean Corpuscular Volume 88 fL (80-94); Mean Platelet Volume 7.8 um3 (7.4-10.4); Nucleated Red Blood Cells % 0.1; Platelet Count 259 10^3/ul (150-450); Red Blood Count 6.17 10^6/ul (4.0-5.4); Red Cell Distribution Width 15 % (10.5-15); White Blood Count 12.9 10^3/ul (3.5-10.8)
[2018-04-21 17:03] LABS: EGFR Non-African American 86.8 (>60)
[2018-04-21] MEDS ORDERED: Cephalexin CAP* 500 MG PO ONE (18:08)
[2018-04-21] MEDS ORDERED: Sulfamethox/Trimethoprim DS 800/160* TAB PO ONE (18:08)
[2018-04-21 19:16] VITALS: BP 129/64
--- NOTE | 2018-04-25 07:51 | ED ---
Paul Flowers Angela, scribed for Lorenzo Dinh MD on 04/21/18 at 1612 . GI/ HPI - HPI Summary HPI Summary: This pt is a 52 y/o male [facility] c/o nausea, vomiting, and diarrhea since last night. Pt reports his symptoms began last night and since then he has had frequent episodes of nausea, vomiting, and diarrhea. He additionally states dizziness, lightheadedness. Denies fever, chills, bloody stools, chest pain, swelling in lower extremities. Pt reports he had a mass removed from his left side of neck 2 days ago. Today he states he has increased swelling on the left side of neck. Denies drainage from surgical incision. Pt is scheduled to follow up with Dr. Gutierrez in 3 days. He is not currently on antibiotics. reports the pt has had this lump on his neck "for a while." PMHx includes high cholesterol, depression. Pt is a currently tobacco smoker ( "little cigars"). - History of Current Complaint Chief Complaint: EDGeneral Time Seen by Provider: 04/21/18 16:01 Stated Complaint: POSS. INFECTION/SICKNESS Hx Obtained From: Patient Onset/Duration: Started Days Ago - 1, Still Present Timing: Lasting Days - 1 Current Severity: Moderate Pain Intensity: 0 Associated Signs and Symptoms: Positive: Dizziness, Nausea, Vomiting, Diarrhea, Lightheadedness, Other: - POS: swelling around left side of neck s/p surgery. Negative: Bright Red Blood w/Stool, Blood w/Stool, Fever, Cough, Chest Pain - Additional Pertinent History Primary Care Physician: [id number] - Allergy/Home Medications Allergies/Adverse Reactions: Allergies Allergy/AdvReac Type Severity Reaction Status Date / Time bee venom protein (honey bee) Allergy Intermediate Swelling Verified 04/21/18 13 :33 warfarin Allergy Intermediate Hives Verified 04/21/18 13:33 Home Medications: Home Medications Acetaminophen TAB* [Tylenol TAB*] 325 mg PO Q4H PRN 04/21/18 [History Confirmed 04/21/18] Aspirin EC TAB* [Ecotrin EC Low Dose 81 MG*] 81 mg PO DAILY 04/21/18 [History Confirmed 04/21/18] Atorvastatin* [Lipitor*] 40 mg PO QPM 04/21/18 [History Confirmed 04/21/18] Cholecalciferol TAB* [Vitamin D TAB*] 5,000 unit PO QAM 04/21/18 [History Confirmed 04/21/18] Gabapentin CAP(*) [Neurontin 300 CAP(*)] 600 mg PO BID 04/21/18 [History Confirmed 04/21/18] Ibuprofen TAB* [Motrin TAB* 800 MG] 800 mg PO Q6H PRN 04/21/18 [History Confirmed 04/21/18] Pantoprazole TAB (NF) [Protonix TAB (NF)] 40 mg PO BID 04/21/18 [History Confirmed 04/21/18] Ranitidine TAB (NF) [Zantac TAB (NF)] 150 mg PO BID 04/21/18 [History Confirmed 04/21/18] Venlafaxine EXT RELEASE CAP* [Effexor Xr CAP*] 150 mg PO DAILY 04/21/18 [ History Confirmed 04/21/18] PMH/Surg Hx/FS Hx/Imm Hx Cardiovascular History: Reports: Hx Angina, Hx Hypercholesterolemia, Hx Hypertension, Hx Rheumatic Fever - 06/1979 Denies: Hx Myocardial Infarction, Hx Valvular Heart Disease, Other Cardiovascular Problems/Disorders Respiratory History: Reports: Hx Sleep Apnea Denies: Other Respiratory Problems/Disorders GI History: Reports: Hx Gastroesophageal Reflux Disease - on medications, Other GI Disorders - appendectomy, cholecystectomy History: Reports: Hx Kidney Stones - procedures for kidney stones in the last 2-3 years Denies: Other Problems/Disorders Musculoskeletal History: Reports: Hx Arthritis - Bilateral knees, Bilateral total knee replacements Denies: Other Musculoskeletal History Sensory History: Reports: Hx Contacts or Glasses - Reading glasses Denies: Hx Hearing Aid Opthamlomology History: Reports: Hx Contacts or Glasses - Reading glasses Neurological History: Denies: Other Neuro Impairments/Disorders Psychiatric History: Reports: Hx Anxiety - Bipolar, Hx Depression - Bipolar - Surgical History Surgery Procedure, Year, and Place: Bilateral knee replacement, Cholecystecomy, Appendectomy, Kidney Stones, Colonoscopy Hx Anesthesia Reactions: No Infectious Disease History: Yes Infectious Disease History: Reports: Hx of Known/Suspected MRSA Denies: Traveled Outside the [place] in Last 30 Days - Family History Known Family History: Negative: Cardiac Disease - Social History Alcohol Use: None Substance Use Type: Reports: None Smoking Status (MU): Current Some Day Smoker Type: Cigarettes Amount Used/How Often: 1 pack/day Have You Smoked in the Last Year: Yes Review of Systems Negative: Fever, Chills Negative: Erythema Negative: Sore Throat Negative: Chest Pain Negative: Shortness Of Breath, Cough Positive: Vomiting, Diarrhea, Nausea. Negative: Abdominal Pain, Other - bloody stools Negative: dysuria, hematuria Negative: Myalgia, Edema Skin: Other - swelling around left side of neck s/p surgery Negative: Rash Neurological: Other - POS: dizziness, lightheadedness All Other Systems Reviewed And Are Negative: Yes Physical Exam - Summary Physical Exam Summary: Constitutional: Well-developed, Well-nourished, Alert. (-) Distressed Skin: Warm, Dry. Very mild erythema around incision on left side of neck with very mild swelling. No induration. No fluctuance. HENT: Normocephalic; Atraumatic Eyes: Conjunctiva normal Neck: Musculoskeletal ROM normal neck. (-) JVD, (-) Stridor, (-) Tracheal deviation Cardio: Rhythm regular, rate normal, Heart sounds normal; Intact distal pulses; The pedal pulses are 2+ and symmetric. Radial pulses are 2+ and symmetric. (-) Murmur Pulmonary/Chest wall: Effort normal. (-) Respiratory distress, (-) Wheezes, (-) Rales Abd: Soft, (-) Tenderness, (-) Distension, (-) Guarding, (-) Rebound Musculoskeletal: (-) Edema Lymph: (-) Cervical adenopathy Neuro: Alert, Oriented x3 Psych: Mood and affect Normal Triage Information Reviewed: Yes Vital Signs On Initial Exam: Initial Vitals Temp Pulse Resp BP Pulse Ox 98.1 F 80 16 115/74 96 04/21/18 13:28 04/21/18 13:28 04/21/18 13:28 04/21/18 13:28 04/21/18 13:28 Vital Signs Reviewed: Yes Diagnostics - Vital Signs Vital Signs Temp Pulse Resp BP Pulse Ox 04/21/18 15:25 97.6 F 70 18 117/69 97 04/21/18 13:28 98.1 F 80 16 115/74 96 - Laboratory Result Diagrams: 04/21/18 16:28 04/21/18 16:27 Lab Statement: Any lab studies that have been ordered have been reviewed, and results considered in the medical decision making process. - EKG 16:25 Cardiac Rate: NL - at 69 bpm EKG Rhythm: Sinus Rhythm EKG Interpretation: No STEMI. Re-Evaluation - Re-Evaluation First Eval Re-Evaluation Time: 18:25 Change: Improved Comment: Pt is feeling better. He will be discharged with follow up from Dr. Gutierrez next week on Tuesday. GIGU Course/Dx - Course Assessment/Plan: Pt is a 52 y/o male presenting to [facility] c/o nausea, vomiting, and diarrhea since last night. Pt reports his symptoms began last night and since then he has had frequent episodes of nausea, vomiting, and diarrhea. He additionally states dizziness, lightheadedness. Denies fever, chills, bloody stools, chest pain, swelling in lower extremities. Pt reports he had a mass removed from his left side of neck 2 days ago. Today he states he has increased swelling on the left side of neck. Denies drainage from surgical incision. Pt is scheduled to follow up with Dr. Gutierrez in 3 days. He is not currently on antibiotics. Test results without any significant abnormalities except for WBC of 12.9, CRP of 8.6. In the ED course the pt was given IV fluids, zofran, Bactrim, Keflex. On re-evaluation pt is feeling better. He will be discharged home with follow up from Dr. Gutierrez, next week as scheduled on Tuesday. Pt was given prescriptions for Keflex, Bactrim, and Zofran. - Diagnoses Provider Diagnoses: Gastroenteritis, Skin erythema Discharge - Sign-Out/Discharge Documenting (check all that apply): Discharge/Admit/Transfer - Discharge - Discharge Plan Condition: Stable Disposition: HOME Prescriptions: Cephalexin CAP* [Keflex CAP*] 500 mg PO QID #28 cap Ondansetron ODT TAB* [Zofran 4 MG Odt TAB*] 4 mg PO Q8H PRN #15 tab.odt PRN Reason: Nausea/Vomiting Sulfamethox/Trimethoprim DS* [Bactrim DS 800/160 TAB*] 1 tab PO BID #14 tab Patient Education Materials: Gastroenteritis (ED) Referrals: Carlos Gutierrez MD [Medical Doctor] - Alise Marroquin MD [Primary Care Provider] - Additional Instructions: Follow up with Dr. Gutierrez next week as scheduled. RETURN TO THE EMERGENCY DEPARTMENT FOR CHANGING OR WORSENING SYMPTOMS. The documentation as recorded by the Paul salmon Angela accurately reflects the service I personally performed and the decisions made by , Lorenzo Dinh MD.
== END 2018-04-21 19:19 | disposition home or self-care (01) ==
LOC: ED 13:23
DX: K52.9 Noninfective gastroenteritis and colitis, unspecified (principal); L53.9 Erythematous condition, unspecified; R42 Dizziness and giddiness; I20.9 Angina pectoris, unspecified; I10 Essential (primary) hypertension; E78.00 Pure hypercholesterolemia, unspecified; G47.30 Sleep apnea, unspecified; K21.9 Gastro-esophageal reflux disease without esophagitis; Z87.442 Personal history of urinary calculi; F41.9 Anxiety disorder, unspecified; F31.9 Bipolar disorder, unspecified; Z96.653 Presence of artificial knee joint, bilateral; Z90.49 Acquired absence of other specified parts of digestive tract; Z90.89 Acquired absence of other organs; Z88.8 Allergy status to other drugs, medicaments and biological substances; Z91.030 Bee allergy status; Z72.0 Tobacco use
CPT/HCPCS: 36415; 80053; 83605; 83690; 85025; 86140; 93005; 99282; A9270-GY